=== PATIENT | female | born 1950 | race Caucasian/White ===

== ENCOUNTER 2017-04-17 19:07 | Emergency (ER) | payer MEDICARE ==
[2017-04-17 20:35] VITALS: BP 94/50; TEMP 98.6; O2SAT 94
--- NOTE | 2017-04-17 22:02 | ED.PDOC ---
History of Present Illness - General Chief Complaint: General Stated Complaint: finger pain after cat bite Time Seen by Provider: 04/17/17 21:22 Source: patient Exam Limitations: no limitations - History of Present Illness Initial Comments: Patient presents after being bitten by a kitten. The kitten lives in her barn and is the offspring of a wild mother. The patient is concerned about rabies and tetanus. No pain complaints. Bite is on the left distal anterior index finger. Timing/Duration: 1-3 hours Severity: mild Improving Factors: nothing Worsening Factors: nothing Associated Symptoms: denies symptoms Allergies/Adverse Reactions: Allergies NO KNOWN ALLERGY Allergy (Verified 06/27/16 07:21) Home Medications: Ambulatory Orders ALPRAZolam [Xanax] 0.25 mg PO PRN PRN 08/20/14 Atenolol [Tenormin] 100 mg PO DAILY 08/20/14 Meloxicam 7.5 mg PO DAILY 08/20/14 Miglitol [Glyset] 50 mg PO TID 08/20/14 Omeprazole 20 mg PO DAILY 08/20/14 Potassium Chloride [K-Tab] 10 meq PO DAILY 08/20/14 Triamterene & Hydrochlorothiaz [Triamterene/Hydrochloroth 37.5-25 mg] 1 tab PO DAILY 08/20/14 Metformin HCl 500 mg PO BID 04/29/15 Oxybutynin Chloride [Ditropan] 5 mg PO DAILY 04/29/15 HYDROcodone 5MG/APAP 325MG [[place] 5/325] 1 ea PO Q4H #90 tab 06/17/16 Rivaroxaban [Xarelto] 10 mg PO DAILY #9 tab 06/17/16 Review of Systems - Review of Systems Constitutional: States: no symptoms reported EENTM: States: no symptoms reported Respiratory: States: no symptoms reported Cardiology: States: no symptoms reported Gastrointestinal/Abdominal: States: no symptoms reported Genitourinary: States: no symptoms reported Musculoskeletal: States: no symptoms reported Skin: States: see HPI Neurological: States: no symptoms reported Endocrine: States: no symptoms reported Hematologic/Lymphatic: States: no symptoms reported Past Medical History (General) - Patient Medical History Hx Stroke: No Hx of COPD: No - use to be heavy smoker, quit few months ago Hx Congestive Heart Failure: No Hx Hypertension: Yes Hx Diabetes: Yes Hx MRSA: No - Vaccination History Hx Tetanus, Diphtheria Vaccination: No Hx Influenza Vaccination: No Hx Pneumococcal Vaccination: No Immunizations Up to Date: No - Social History Hx Tobacco Use: Yes - 30 yrs - Female History Patient : No Family Medical History - Family History Mother Living Status: Hx Family Hypertension: Yes Physical Exam - Physical Exam Respiratory: lungs clear Cardiovascular/Chest: regular rate, rhythm Skin Exam: other - punctate superficial lesion on left anterior distal 2nd phalange. Hemostatic. Progress - Progress Progress: 04/17/17 22:02 [facility] department notified and the process was started with them to contact animal control personprosper to quarantine the kittens. Patient was given a tetanus booster. Patient ordered to follow up with Dr. Barnes tomorrow to follow the events and determine if there is a need for rabies immunoglobulin. Patient voiced understanding and agreement with this plan. Departure - Departure Clinical Impression: Animal bite Disposition: Discharge to Home or Self Care Condition: Good Departure Forms: ED Discharge - Pt. Copy, Patient Portal Self Enrollment Diet: resume usual diet Activity: increase activity as tolerated Referrals: Ortiz Begum MD [Primary Care Provider] - 1-2 Weeks Home Medications: Ambulatory Orders ALPRAZolam [Xanax] 0.25 mg PO PRN PRN 08/20/14 Atenolol [Tenormin] 100 mg PO DAILY 08/20/14 Meloxicam 7.5 mg PO DAILY 08/20/14 Miglitol [Glyset] 50 mg PO TID 08/20/14 Omeprazole 20 mg PO DAILY 08/20/14 Potassium Chloride [K-Tab] 10 meq PO DAILY 08/20/14 Triamterene & Hydrochlorothiaz [Triamterene/Hydrochloroth 37.5-25 mg] 1 tab PO DAILY 08/20/14 Metformin HCl 500 mg PO BID 04/29/15 Oxybutynin Chloride [Ditropan] 5 mg PO DAILY 04/29/15 HYDROcodone 5MG/APAP 325MG [[place] 5/325] 1 ea PO Q4H #90 tab 06/17/16 Rivaroxaban [Xarelto] 10 mg PO DAILY #9 tab 06/17/16 Additional Instructions: Call Dr. Barnes in the morning and get an appointment with him this week so that you can establish a plan to determine if you need rabies prophylaxis measures.
[2017-04-17] MEDS ORDERED: TETANUS,DIPHTHERIA,PERTUSSIS 1 EA SYG IM ONE (22:05)
== END 2017-04-17 22:19 | disposition home or self-care (01) ==
LOC: ER 19:07
DX: S60.471A Other superficial bite of left index finger, initial encounter (principal); I10 Essential (primary) hypertension; E11.9 Type 2 diabetes mellitus without complications; Z23 Encounter for immunization; Z79.899 Other long term (current) drug therapy; Z87.891 Personal history of nicotine dependence; Y92.9 Unspecified place or not applicable; W55.01XA Bitten by cat, initial encounter

== ENCOUNTER 2017-06-03 20:43 | Inpatient (IN) | payer MEDICARE ==
--- NOTE | 2017-06-03 21:22 | RAD ---
EXAM DESCRIPTION: Chest,2 Views CLINICAL HISTORY: chest discomfort COMPARISON: June 06, 2016 FINDINGS: Cardiac silhouette is within normal limits. Aorta is tortuous. There is no focal parenchymal or pleural disease. There is no acute osseous process visualized. IMPRESSION: No evidence of acute cardiopulmonary disease. Electronically signed by: Omari Bentley MD 06/03/2017 9:21 PM CDT
[2017-06-03] MEDS ORDERED: METOPROLOL TARTRATE 25 MG TAB PO ONE (21:26)
[2017-06-03] MEDS ORDERED: PANTOPRAZOLE SODIUM TAB 40 MG PO ONE (21:26)
[2017-06-03] MEDS ORDERED: ENOXAPARIN SODIUM 100 MG/ML SYG SUBCU ONE (21:36)
[2017-06-03] MEDS ORDERED: DIGOXIN INJ 0.5 MG/2 ML AMP IV ONE (23:17)
[2017-06-03] MEDS ORDERED: ALPRAZolam 0.25 MG TAB PO ONE (23:47)
--- NOTE | 2017-06-03 23:47 | ED.PDOC ---
History of Present Illness - General Chief Complaint: Cardiovascular Problem Stated Complaint: "feeling weird, like heart racing" Time Seen by Provider: 06/03/17 20:44 Source: patient, family Exam Limitations: no limitations - History of Present Illness Initial Comments: he patient is a 67-year-old female presenting to the emergency room secondary to a feeling of discomfort in her chest that is not pain. It started up on her again about 4-6 hours ago. She is not feeling shortness of breath. She is not having chest pain. She is feeling a few palpitations. No syncope or near syncope. The patient has apparently had these episodes before. She believes the first was 3 or 4 months ago. No headache. No change in medications recently. Timing/Duration: unsure Severity: mild Improving Factors: nothing Worsening Factors: nothing Associated Symptoms: denies symptoms Allergies/Adverse Reactions: Allergies NO KNOWN ALLERGY Allergy (Verified 06/03/17 22:43) Home Medications: Ambulatory Orders ALPRAZolam [Xanax] 0.25 mg PO PRN PRN 08/20/14 Atenolol [Tenormin] 100 mg PO DAILY 08/20/14 Meloxicam 7.5 mg PO DAILY 08/20/14 Miglitol [Glyset] 50 mg PO TID 08/20/14 Omeprazole 20 mg PO DAILY 08/20/14 Potassium Chloride [K-Tab] 10 meq PO DAILY 08/20/14 Triamterene & Hydrochlorothiaz [Triamterene/Hydrochloroth 37.5-25 mg] 1 tab PO DAILY 08/20/14 Metformin HCl 500 mg PO BID 04/29/15 Oxybutynin Chloride [Ditropan] 5 mg PO DAILY 04/29/15 HYDROcodone 5MG/APAP 325MG [[place] 5/325] 1 ea PO Q4H #90 tab 06/17/16 Rivaroxaban [Xarelto] 10 mg PO DAILY #9 tab 06/17/16 Review of Systems - Review of Systems Constitutional: States: no symptoms reported EENTM: States: no symptoms reported Respiratory: States: no symptoms reported Cardiology: States: palpitations Gastrointestinal/Abdominal: States: no symptoms reported Genitourinary: States: no symptoms reported Musculoskeletal: States: no symptoms reported Skin: States: no symptoms reported Neurological: States: no symptoms reported Endocrine: States: no symptoms reported All other Systems: No Change from Baseline Past Medical History (General) - Patient Medical History Hx Stroke: No Hx of COPD: No - use to be heavy smoker, quit few months ago Hx Congestive Heart Failure: No Hx Hypertension: Yes Hx Diabetes: Yes Hx Cancer: No Hx Hepatitis C: No Hx MRSA: No Surgical History: appendectomy, Hysterectomy, other - Vaccination History Hx Tetanus, Diphtheria Vaccination: No Hx Influenza Vaccination: Yes Hx Pneumococcal Vaccination: No - Social History Hx Tobacco Use: Yes Hx Alcohol Use: No - Female History Patient : No Family Medical History - Family History Mother Living Status: Hx Family Hypertension: Yes Physical Exam - Physical Exam General Appearance: Alert, Comfortable, No apparent distress Eye Exam: bilateral normal Ears, Nose, Throat: hearing grossly normal, normal ENT inspection, normal pharynx Neck: full range of motion, supple Respiratory: lungs clear, normal breath sounds, no respiratory distress, no accessory muscle use Cardiovascular/Chest: normal peripheral pulses, no edema, tachycardia, irregularly irregular Peripheral Pulses: radial,right: 2+, radial,left: 2+, dorsalis pedis,right: 2+, dorsalis pedis,left: 2+ Gastrointestinal/Abdominal: non tender, soft Rectal Exam: deferred Back Exam: normal inspection, no CVA tenderness Extremity: normal range of motion, non-tender, normal inspection, no pedal edema , normal capillary refill Neurologic: crime victim specialist II-XII nml as tested, alert, normal mood/affect, oriented x 3 Skin Exam: normal color Comments: Vital Signs - 24 hr 06/03/17 06/03/17 21:10 23:42 Temperature 98.1 F Pulse Rate 144 H Pulse Rate [ 128 H left] Respiratory 22 Rate Blood Pressure 133/78 [left] O2 Sat by Pulse 96 Oximetry Progress - Progress Progress: 06/03/17 23:48 the patient is a 67-year-old female presenting to the emergency room secondary to a funny feeling in her chest. Given her history it appears that she is likely had paroxysmal atrial fibrillation for the last 3 or 4 months. The patient is certainly not rate controlled. at this time She is not exhibiting any evidence of any strokes. The patient was given a dose of Lovenox here. The plan initially was to give the patient a dose of oral metoprolol to get her slowed down adequately and then let her go home with a blood thinner to follow up with her primary care doctor and cardiology. Unfortunately the metoprolol has not slown her down adequately and her blood pressure has dropped too much to use additional oral diltiazem. The patient is being loaded with IV digoxin for now. Clinically the patient is in no distress however a heart rate in the 130s to 150s is something that needs to be controlled. The patient will be admitted for further medication adjustments to obtain adequate rate control. Continue anticoagulation. Electrolytes are being corrected. - Results/Orders Results/Orders: Laboratory Tests 06/03/17 06/03/17 06/03/17 21:00 21:00 21:00 WBC 8.3 RBC 4.64 Hgb 12.5 Hct 37.6 MCV 81.1 MCH 26.9 L MCHC 33.3 RDW 16.1 H Plt Count 269 MPV 8.3 Absolute Neuts (auto) 5.20 Absolute Lymphs (auto) 2.00 Absolute Monos (auto) 0.70 Absolute Eos (auto) 0.30 Absolute Basos (auto) 0.10 Neutrophils % 62.5 Lymphocytes % 23.9 Monocytes % 8.9 Eosinophils % 3.9 Basophils % 0.8 PT 10.8 INR 0.960 PTT (SP) 30.6 D-Dimer, Quantitative < 230 Sodium 140 Potassium 3.7 Chloride 100 L Carbon Dioxide 28 Anion Gap 15.7 BUN 27 H Creatinine 1.05 BUN/Creatinine Ratio 25.7 H Random Glucose 138 H Serum Osmolality 286.7 Calcium 9.7 Magnesium 1.7 L Total Bilirubin 0.5 AST 25 ALT 18 Alkaline Phosphatase 74 Creatine Kinase 118 CK-MB (CK-2) 4.1 CK-MB (CK-2) % Not Reportable Troponin I < 0.02 B-Natriuretic Peptide 125.0 H Serum Total Protein 8.3 H Albumin 4.4 Globulin 3.9 H Albumin/Globulin Ratio 1.1 Lipase 43 TSH 1.65 Urine Color Urine Appearance Urine pH Ur Specific [place] Urine Protein Urine Glucose (UA) Urine Ketones Urine Blood Urine Nitrite Urine Bilirubin Urine Urobilinogen Ur Leukocyte Esterase Urine RBC Urine WBC Ur Epithelial Cells Urine Bacteria 06/03/17 22:10 WBC RBC Hgb Hct MCV MCH MCHC RDW Plt Count MPV Absolute Neuts (auto) Absolute Lymphs (auto) Absolute Monos (auto) Absolute Eos (auto) Absolute Basos (auto) Neutrophils % Lymphocytes % Monocytes % Eosinophils % Basophils % PT INR PTT (SP) D-Dimer, Quantitative Sodium Potassium Chloride Carbon Dioxide Anion Gap BUN Creatinine BUN/Creatinine Ratio Random Glucose Serum Osmolality Calcium Magnesium Total Bilirubin AST ALT Alkaline Phosphatase Creatine Kinase CK-MB (CK-2) CK-MB (CK-2) % Troponin I B-Natriuretic Peptide Serum Total Protein Albumin Globulin Albumin/Globulin Ratio Lipase TSH Urine Color Yellow Urine Appearance Clear Urine pH 6.5 Ur Specific [place] 1.015 Urine Protein 30 Urine Glucose (UA) Negative Urine Ketones Negative Urine Blood Trace-intact H Urine Nitrite Negative Urine Bilirubin Negative Urine Urobilinogen 0.2 Ur Leukocyte Esterase Negative Urine RBC 0-1 Urine WBC 0-1 Ur Epithelial Cells 0-1 Urine Bacteria 0 chest x-ray appears largely benign. EKG shows atrial fibrillation with rapid ventricular rate at a rate of [address] bpm. No definitive acute ST segment changes concerning for ischemia. Departure - Departure Clinical Impression: Atrial fibrillation with rapid ventricular response Disposition: Admit Patient Referrals: Ortiz Begum MD [Primary Care Provider] - 1-2 Weeks Home Medications: Ambulatory Orders ALPRAZolam [Xanax] 0.25 mg PO PRN PRN 08/20/14 Atenolol [Tenormin] 100 mg PO DAILY 08/20/14 Meloxicam 7.5 mg PO DAILY 08/20/14 Miglitol [Glyset] 50 mg PO TID 08/20/14 Omeprazole 20 mg PO DAILY 08/20/14 Potassium Chloride [K-Tab] 10 meq PO DAILY 08/20/14 Triamterene & Hydrochlorothiaz [Triamterene/Hydrochloroth 37.5-25 mg] 1 tab PO DAILY 08/20/14 Metformin HCl 500 mg PO BID 04/29/15 Oxybutynin Chloride [Ditropan] 5 mg PO DAILY 04/29/15 HYDROcodone 5MG/APAP 325MG [[place] 5/325] 1 ea PO Q4H #90 tab 06/17/16 Rivaroxaban [Xarelto] 10 mg PO DAILY #9 tab 06/17/16 Decision To Admit - Decistion To Admit Decision to Admit Reason: Medical Nature Decision to Admit Date: 06/03/17 Decision to Admit Time: 23:52
--- NOTE | 2017-06-04 00:01 | HP ---
SUPERVISING PHYSICIAN: Xu Corey MD CHIEF COMPLAINT: Heart palpitations. HISTORY OF PRESENT ILLNESS: Ms. Burnett is a 67 year-old patient who presented to the Emergency Department due to the feeling of a discomfort in her chest. She denies that the discomfort she was feeling was not pain and was more of a pressure and palpitations. This had been going on for about 4 to 6 hours. She denied any shortness of breath or syncopal episodes. She notes she has been having this type of symptoms for well over 4 to 5 months. Tonight she took an antacid and this resulted in no change in her symptoms after which point she presented to the Emergency Department. On initial presentation to the Emergency Department, her vital signs showed she had a heart rate of 148, blood pressure 120/63. Saturation 96% on room air and she was afebrile. EKG completed showed that she was in atrial fibrillation with rapid ventricular response. Laboratory was completed at that point and showed that her CBC was within normal limits as well as coagulation studies. Chemistries showed a troponin of less than 0.02. Electrolytes were within normal limits with normal potassium of 3.7. Magnesium was noted to be a little bit low at 1.7. BNP was 125. She was then given a dose of metoprolol tartrate 25 mg which resulted in a drop in her blood pressure with her blood pressure showing to be 97/42. With her blood pressure being low, Dr. Corey started her on digoxin for rate control with an initial dose of 0.25 mg. Shortly after that, she did show conversion back to normal sinus rhythm into the 80s. Given that she did convert with a digoxin, Dr. Corey requested the patient be admitted now for continued loading of the digoxin to obtain a therapeutic level, to continue with telemetry and further assist in maintaining rate control. The patient was admitted to the medical/ surgical floor in stable condition. PAST MEDICAL HISTORY: 1. Type 2 diabetes mellitus. 2. Hypertension. 3. Stress incontinence. 4. Arthritis. PAST SURGICAL HISTORY: 1. Tonsillectomy and adenoidectomy. 2. Hysterectomy. 3. Appendectomy. 4. x2. 5. Left foot surgery. 6. Left hand surgery. 7. Right total knee replacement in 2016. CURRENT MEDICATIONS: Please refer to updated list of home medications after they have been verified and placed in the electric medical records. ALLERGIES: NO KNOWN DRUG ALLERGIES. FAMILY HISTORY: Significant for cardiovascular disease, cancer and diabetes. SOCIAL HISTORY: The patient is disabled, . She does live in [place]. She has a history of smoking 1 to 1-1/2 pack of cigarettes for well over 30 years but stopped in 2016. She has never used alcohol and she denies any illicit drug use. REVIEW OF SYSTEMS: CONSTITUTIONAL: Denies any fever, malaise or body aches. HEENT: Denies headaches, vision changes, sinus congestion. RESPIRATORY: Denies shortness of breath. CARDIOVASCULAR: As noted in the history of present illness, palpitations noted , no reported chest pains, syncopal or near syncopal episodes. GASTROINTESTINAL: Denies nausea, vomiting, diarrhea. GENITOURINARY: Denies dysuria, hematuria or other urinary symptoms. NEUROLOGICAL: She denies any syncopal episodes,near syncopal episodes, vision changes, headaches, migraines or other neurological symptoms. PHYSICAL EXAMINATION: VITAL SIGNS: Heart rate initially on admission to the Emergency Room showed a rate between 120 and 148 on bedside telemetry with initial blood pressure being 120/63. Temperature 98.1. On admission to the medical/surgical floor she was in normal sinus rhythm with a heart rate of 78. Blood pressure was 92/67, respirations 18. Saturation 95% on room air. Admission weight 95.7 kg. GENERAL: On examination in the Emergency Room, the patient was in no acute distress. She was comfortable and alert and appears to be well-nourished and well-hydrated. HEENT: Tympanic membranes are clear bilaterally. Pharynx is pink and moist without any lesions. NECK: Supple, non-tender with full range of motion. No jugular venous distention noted. CHEST: Lungs clear to auscultation bilaterally without any rhonchi, rales, or wheezes. CARDIOVASCULAR: Regular rate and rhythm showing normal sinus rhythm on bedside monitor without any appreciable murmurs, rubs, or gallops. ABDOMEN: Soft, non-tender, positive bowel sounds. EXTREMITIES: No cyanosis, clubbing, or edema. NEUROLOGIC: She was alert and oriented x 3. Cranial nerves II through XII are grossly intact. Facial features were symmetrical. Extraocular movements within normal limits. There was no noted nystagmus and no notable neurosensory deficits. LABORATORY: CBC showed a white count of 8.3, hemoglobin 12.5, hematocrit 37.6, platelet count 269,000, differential within normal limits. Coagulation studies, both PT/ PTT and D-dimer were all within normal limits. Chemistries: Electrolytes showed to be within normal limits with a potassium of 3.7, BUN 27, creatinine 1.05, glucose 138, calcium 9.7, magnesium low at 1.7. All liver functions showed to be within normal limits and troponin was less than 0.02. BNP was slightly elevated at 125. TSH was normal at 1.65 as well as amylase was 43. Urinalysis showed a trace of intact blood on dipstick, otherwise was within normal limits. RADIOLOGY: Chest x-ray single view in the Emergency Department per radiology interpretation showed no evidence of acute cardiopulmonary disease. ASSESSMENT: 1. Paroxysmal atrial fibrillation with a rapid ventricular response on admission, responding to digoxin showing to be in normal sinus rhythm after initial dose of digoxin. 2. Type 2 diabetes mellitus. 3. Hypertension. 4. Stress incontinence. 5. Arthritis. PLAN: The patient is to be admitted to the medical/surgical floor for continued telemetry. We will continue with close monitoring and continue with loading dose of digoxin. She did get 0.25 mg initially, will follow this up with 0.25 mg x2 dose for a total of 1 mg loading dose to be continued with daily dose based off digoxin level to be collected after third dose of digoxin. Will plan to repeat laboratory studies in the morning. Will anticipate length of stay to be 2 to 3 days. Until discharge, we will continue to monitor the patient closely and treat appropriately. Once clinically stable enough to be discharged, she will need close clinical followup with her primary care physician, Dr. Begum. #[id number] [facility]
[2017-06-04] MEDS ORDERED: SODIUM CHLORIDE 0.9% (FLUSH) 10 ML SYG IV PRN (01:33)
[2017-06-04] MEDS ORDERED: ACETAMINOPHEN 325 MG TAB PO PRN (01:33)
[2017-06-04] MEDS ORDERED: GLUCAGON INJ 1 MG VIAL SUBCU PRN (01:33)
[2017-06-04] MEDS ORDERED: DEXTROSE 50% 25 GM/50 ML SYG IV PRN (01:33)
[2017-06-04] MEDS ORDERED: KCL 20MEQ/0.45% NS 1,000 ML IVS PRN (01:38)
[2017-06-04] MEDS ORDERED: IV SET AND CAP CHANGE INJ INJ SCH (02:00)
[2017-06-04] MEDS: DIGOXIN INJ 0.5 MG/2 ML AMP IV SCH ×2 (06:13→18:37)
[2017-06-04] MEDS: INSULIN LISPRO 100 UNITS/ML PEN SUBCU SCH ×4 (07:18→21:00)
[2017-06-04] MEDS ORDERED: SODIUM CHLORIDE 0.9% 500ML 500 ML IVS ONE (08:26)
[2017-06-04] MEDS ORDERED: SODIUM CHLORIDE 0.9% 500ML 500 ML ONE (10:56)
[2017-06-04] MEDS ORDERED: ALPRAZolam 0.25 MG TAB PO PRN (17:57)
[2017-06-04] MEDS ORDERED: METOPROLOL TARTRATE 25 MG TAB PO ONE (18:03)
[2017-06-04] MEDS ORDERED: OMEPRAZOLE CAP 20 MG CAP PO SCH (18:30)
[2017-06-04] MEDS ORDERED: METOPROLOL SUCCINATE XL 25 MG TAB PO ONE (18:37)
[2017-06-04] MEDS ORDERED: DIGOXIN 0.125 MG TAB PO ONE (19:00)
[2017-06-04] MEDS ORDERED: ENOXAPARIN SODIUM 40 MG/0.4 ML SYG SUBCU SCH (19:00)
[2017-06-04] MEDS ORDERED: POTASSIUM CHLORIDE 20 MEQ TAB ONE (19:42)
--- NOTE | 2017-06-04 19:49 | PN ---
DATE: 06/04/17 SUBJECTIVE: The patient is feeling much improved with pulse in the 40s, 50s and now 60s per minute. Her final dose for digitalization had to be held at noon today because pulse in the 40s and 50s. Blood pressure has stabilized. She is able to ambulate and feeling quite well. No significant shortness of breath or chest discomfort noted. Of note is the recurring nature of these symptoms of what appear to be paroxysmal atrial fibrillation even though she has been on Lopressor 100 mg a day. She is a diabetic on oral hypoglycemic medications. Her blood pressure was so low in the Emergency Room that they opted to digitalize her and then reintroduce to the beta blockade at a lower dose to see if it will result in rate control. Subsequent conversion to normal sinus rhythm was noted close to the time of her admission to the hospital. She is not on any significant anticoagulant therapy. OBJECTIVE: Blood pressure was only 84/54 until approximately 10:00 this morning when it was 135/84. Afebrile. Intake and output fairly good. LUNGS: Clear. HEART: Tones regular. Pulse rate was down to 44 at 6:00 this morning and was 60 at 6:23 this evening. LABORATORY: White count of 9,300, hemoglobin 12 and stable. Chemistry showed potassium 3.6 with supplementation to continue. CO2 of 28, BUN 27, creatinine 1.13, glucose 97 fasting, calcium 9.2, magnesium 1.8. Urinalysis showed a trace of hematuria. No cultures obtained. Chest x-ray at the time of admission showed no acute findings. ASSESSMENT: 1. Acute atrial fibrillation with rapid ventricular response with paroxysmal episodes noted at home before admission. Rate control as well as conversion to normal sinus rhythm was noted after initiation of Digoxin with further rate control to be adjusted with modified beta blockade which she has been on chronically. 2. Diabetes mellitus type 2. 3. Hypertension currently with hypotension. 4. Stress incontinence. 5. Arthritis. PLAN: The patient is doing better but will need to have close followup and management, and adjustment for her home medication treatment program. We will attempt to find an opening so that she will be able to be seen by Dr. Mayen in cardiology clinic tomorrow during the day so that she would be able to get his advice and to assist Dr. Begum with ongoing management of the atrial fibrillation. Whether an Atenolol of 50 mg twice a day is sufficient along with a low dose Lanoxin. Whether to utilize anticoagulation also to be addressed by cardiology clinic tomorrow. Close management of the diabetes to continue. Thyroid function is within normal limits. #[id number] [facility]
[2017-06-04] MEDS ORDERED: POTASSIUM CHLORIDE 10 MEQ TAB PO SCH (21:00)
[2017-06-04] MEDS ORDERED: metFORMIN HCL 500 MG TAB PO SCH ×2 (21:00)
[2017-06-04] MEDS ORDERED: KCL 20MEQ/0.45% NS 0 ML IVS ONE (21:55)
[2017-06-05] MEDS ORDERED: METOPROLOL TARTRATE 50 MG TAB PO SCH (07:30)
[2017-06-05] MEDS: INSULIN LISPRO 100 UNITS/ML PEN SUBCU SCH ×2 (07:58→11:44)
[2017-06-05] MEDS ORDERED: POTASSIUM CHLORIDE 20 MEQ TAB ONE (08:55)
[2017-06-05] MEDS ORDERED: POTASSIUM CHLORIDE 10 MEQ TAB PO SCH (09:00)
[2017-06-05] MEDS ORDERED: metFORMIN HCL 500 MG TAB PO SCH (09:00)
[2017-06-05] MEDS ORDERED: OXYBUTYNIN CL 5 MG TAB PO SCH (09:00)
[2017-06-05] MEDS: DIGOXIN 0.125 MG TAB PO SCH ×2 (10:04→12:29)
[2017-06-05] MEDS ORDERED: DIGOXIN 0.125 MG TAB PO SCH (12:00)
[2017-06-05 12:04] VITALS: BP 131/81; TEMP 97.5; O2SAT 97
--- NOTE | 2017-06-05 14:23 | DS ---
DISCHARGE DIAGNOSIS: 1. Acute atrial fibrillation with rapid ventricular response with clinical evidence of paroxysmal episodes noted at home before her current admission. Rate control was obtained with digoxin parenterally with conversion to normal sinus rhythm and beta blockade was also continued with an adjusted dose. 2. Diabetes mellitus type 2. 3. Hypertension, currently with hypotension with adjustments of medications being made. 4. Chronic stress incontinence. 5. History of arthritis. HISTORY OF PRESENT ILLNESS: This 67-year-old, white female is admitted to the hospital from the Emergency Room because of significant discomfort in her chest and a rapid pulse with irregularities and palpitations. She has been noticing these symptoms for at least 4 to 6 hours before admission and has had several episodes of these symptoms in the recent few weeks. She has been on Lopressor 100 mg once a day, but still having these paroxysmal palpitations. She has been having them repeatedly for the last 4 or 5 months. She is seen in the clinic by Dr. Begum who assists with her ongoing medical care. In the Emergency Room, she received the initial digitalization dose of Lanoxin parenterally which showed good response with conversion back to normal sinus rhythm from a pulse of over 150. She was admitted to the hospital because of the significance of the recurring rhythm to continue with DVT prophylaxis as well as digitalization loading. Special attention to her blood pressure management as well to prevent hypotension. LABORATORY: White count 8,300, hemoglobin 12.5. INR 0.96, D-dimer 0. Chemistries showed potassium 3.9 after supplementation, BUN 23, creatinine 1.03 , fasting glucose 135. Cholesterol 170, magnesium 1.7 up to 1.8 with supplementation. Beta natriuretic peptide 125. Troponin 0. Now albumin is 4.4 , TSH 1.65. No cultures obtained. Chest x-ray on admission showed no acute cardiopulmonary process HOSPITAL COURSE: The patient was feeling much improved on the morning of discharge and was seen in cardiology clinic before discharge to assist with initiating an outpatient followup and management program. PLAN: The patient was ready to have continued outpatient therapy at the time fo her discharge. She will have followup with Dr. Begum, her primary care physician, within the next 2 weeks, to see Dr. Clifford Mayen, furnace feeder, next 06/12/17, at 2 PM for repeat followup. #[id number] [facility]
[2017-06-05] MEDS ORDERED: ENOXAPARIN SODIUM 40 MG/0.4 ML SYG SUBCU SCH (21:00)
[2017-06-06] MEDS ORDERED: OMEPRAZOLE CAP 20 MG CAP PO SCH (06:30)
== END 2017-06-05 16:10 | disposition home or self-care (01) | DRG 310 ==
LOC: ER 20:43 → OBSVTOIN 06-04 → MS 06-04
PROVIDERS: ADMIT Nurse Practitioner Family; ATTEND Emergency Medicine
DX: I48.0 Paroxysmal atrial fibrillation (principal); E11.9 Type 2 diabetes mellitus without complications; I10 Essential (primary) hypertension; M19.90 Unspecified osteoarthritis, unspecified site; N39.3 Stress incontinence (female) (male); Z79.84 Long term (current) use of oral hypoglycemic drugs; Z79.4 Long term (current) use of insulin; Z79.899 Other long term (current) drug therapy; Z96.651 Presence of right artificial knee joint; Z87.891 Personal history of nicotine dependence; Z79.891 Long term (current) use of opiate analgesic

== ENCOUNTER 2017-06-06 22:11 | Emergency (ER) | payer MEDICARE ==
--- NOTE | 2017-06-06 22:31 | ED.PDOC ---
History of Present Illness - General Chief Complaint: Headache Stated Complaint: Headache Time Seen by Provider: 06/06/17 22:30 Source: patient Exam Limitations: no limitations - History of Present Illness Initial Comments: Bri Burnett 67 y/o female stated that she was recently discharge from hospital yesterday afternoon for a fib w/rvr was placed on digoxin and started on pradaxa 10mg.po Timing/Duration: 4-6 hours Quality: constant, throbbing Head Injury Location: frontal Recent Head Trauma: no recent headache/trauma Improving Factors: nothing Worsening Factors: nothing Associated Symptoms: other - photophobia Allergies/Adverse Reactions: Allergies NO KNOWN ALLERGY Allergy (Verified 06/03/17 22:43) Home Medications: Ambulatory Orders ALPRAZolam [Xanax] 0.25 mg PO PRN PRN 08/20/14 Omeprazole 20 mg PO DAILY 08/20/14 Potassium Chloride [K-Tab] 10 meq PO DAILY 08/20/14 Metformin HCl 500 mg PO BID 04/29/15 Oxybutynin Chloride [Ditropan] 5 mg PO DAILY 04/29/15 Apixaban [Eliquis] 5 mg PO BID #60 tab 06/05/17 Atenolol [Tenormin] 50 mg PO BID #0 06/05/17 Digoxin [Lanoxin] 0.25 mg PO Q12N #30 tab 06/05/17 Review of Systems - Review of Systems Constitutional: States: no symptoms reported EENTM: States: no symptoms reported Respiratory: States: no symptoms reported Cardiology: States: no symptoms reported Gastrointestinal/Abdominal: States: no symptoms reported Genitourinary: States: no symptoms reported Musculoskeletal: States: no symptoms reported Neurological: States: see HPI, headache Endocrine: States: no symptoms reported Past Medical History (General) - Patient Medical History Hx Seizures: No Hx Stroke: No Hx Asthma: No Hx of COPD: Yes Hx Cardiac Disorders: Yes - a.fib recent diagnosis Hx Congestive Heart Failure: No Hx Pacemaker: No Hx Hypertension: Yes Hx Diabetes: Yes Hx Cancer: No Hx Hepatitis C: No Hx MRSA: No - Vaccination History Hx Tetanus, Diphtheria Vaccination: No Hx Influenza Vaccination: Yes Hx Pneumococcal Vaccination: No - Social History Hx Tobacco Use: Yes Hx Alcohol Use: No Hx Substance Use: No Hx Physical Abuse: No Hx Emotional Abuse: No - Female History Patient : No Family Medical History - Family History Mother Living Status: Hx Family Hypertension: Yes Physical Exam - Physical Exam General Appearance: Alert, Anxious, No apparent distress Eyes, Ears, Nose, Throat Exam: PERRL/EOMI, normal ENT inspection Neck: non-tender, full range of motion, supple Cardiovascular/Chest: normal peripheral pulses, regular rate, rhythm, no murmur Respiratory: chest non-tender, lungs clear Gastrointestinal/Abdominal: normal bowel sounds, non tender, soft Back Exam: normal inspection, no CVA tenderness Extremity: non-tender, no pedal edema, no calf tenderness Mental Status: alert, 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 Exam: normal hearing, normal speech, PERRL Motor/Sensory: no motor deficit, no sensory deficit, no pronator drift Skin Exam: warm/dry Lymphatic: no adenopathy Progress - Progress Progress: 06/07/17 00:03 Vital Signs - 8 hr 06/06/17 22:29 Temperature 98.2 F Pulse Rate [ 58 L Left Radial] Respiratory 20 Rate Blood Pressure 160/93 [Right Arm] O2 Sat by Pulse 96 Oximetry - Results/Orders Results/Orders: Laboratory Tests 06/06/17 06/06/17 06/07/17 00:20 00:20 00:20 WBC 8.6 RBC 4.01 L Hgb 10.9 L Hct 33.6 L MCV 83.6 MCH 27.1 MCHC 32.4 L RDW 16.1 H Plt Count 212 MPV 8.7 Absolute Neuts (auto) 6.40 Absolute Lymphs (auto) 1.30 Absolute Monos (auto) 0.50 Absolute Eos (auto) 0.30 Absolute Basos (auto) 0.00 Neutrophils % 74.7 Lymphocytes % 15.2 L Monocytes % 6.3 Eosinophils % 3.3 Basophils % 0.5 Sodium 143 Potassium 3.9 Chloride 108 Carbon Dioxide 24 Anion Gap 14.9 BUN 24 H Creatinine 0.90 BUN/Creatinine Ratio 26.7 H Random Glucose 137 H Serum Osmolality 291.2 Calcium 9.0 Digoxin 1.0 - EKG/XRAY/CT EKG: Tommy, Sinus, no ST T wave changes Comments: Heart rate-53 Departure - Departure Clinical Impression: Hypertension, uncontrolled Headache Qualifiers: Headache type: unspecified Headache chronicity pattern: unspecified pattern Intractability: intractable Qualified Code(s): R51 - Headache Time of Disposition: 06:53 Disposition: Admit Patient Condition: Fair Departure Forms: Patient Portal Self Enrollment Referrals: Ortiz Begum MD [Primary Care Provider] - 1-2 Weeks Home Medications: Ambulatory Orders ALPRAZolam [Xanax] 0.25 mg PO PRN PRN 08/20/14 Omeprazole 20 mg PO DAILY 08/20/14 Potassium Chloride [K-Tab] 10 meq PO DAILY 08/20/14 Metformin HCl 500 mg PO BID 04/29/15 Oxybutynin Chloride [Ditropan] 5 mg PO DAILY 04/29/15 Apixaban [Eliquis] 5 mg PO BID #60 tab 06/05/17 Atenolol [Tenormin] 50 mg PO BID #0 06/05/17 Digoxin [Lanoxin] 0.25 mg PO Q12N #30 tab 06/05/17 Decision To Admit - Decistion To Admit Decision to Admit Reason: Admit from ER Decision to Admit Date: 06/07/17 - D/W Rocky Weiss/Joshua Decision to Admit Time: 06:54 Transfer to Outside Facility - Transfer Information Accepting Provider:: Rocky Weiss/Joshua
--- NOTE | 2017-06-06 22:52 | CT ---
PROCEDURE: Head CLINICAL HISTORY: 67 years Female headache on Pradaxa COMPARISON: None. TECHNIQUE: Contiguous axial images obtained through the brain without IV contrast. This exam was performed according to our department optimization program which includes automated exposure control, adjustment of the mA and/or kv according to patient size and/or use of iterative reconstruction technique. FINDINGS: The ventricles and sulci are within normal limits for the patient's age. No midline shift or mass effect. No masses identified. No acute intracranial hemorrhage. Small amount of mucosal thickening in paranasal sinuses. No depressed calvarial fractures. IMPRESSION: No acute intracranial abnormality is identified. Small amount mucosal thickening in the paranasal sinuses Electronically signed by: Suzy Murcia 06/06/2017 10:51 PM CDT
[2017-06-06 22:57] VITALS: TEMP 98.2
[2017-06-06] MEDS ORDERED: fentaNYL CITRATE INJ 50 MCG/ML AMP IV ONE (23:24)
[2017-06-07] MEDS ORDERED: fentaNYL CITRATE INJ 50 MCG/ML AMP IV ONE (00:27)
[2017-06-07] MEDS ORDERED: ENALAPRILAT INJ 1.25 MG/ML VIAL IV ONE ×2 (01:41→06:49)
[2017-06-07] MEDS ORDERED: SODIUM CHLORIDE 0.9% 1000ML 1,000 ML IVS ONE (08:47)
[2017-06-07] MEDS ORDERED: predniSONE 20 MG TAB PO ONE (08:47)
[2017-06-07] MEDS ORDERED: KETOROLAC TROMETHAMINE INJ 30 MG/ML VIAL IV ONE (08:47)
[2017-06-07] MEDS ORDERED: PROMETHAZINE HCL INJ 25 MG in SODIUM CHLORIDE 0.9% 50ML 50 ML IVPB ONE (08:47)
[2017-06-07] MEDS ORDERED: HYDROcodone 7.5MG/APAP 325MG 1 EA TAB PO ONE (08:48)
[2017-06-07] MEDS ORDERED: ALPRAZolam 0.25 MG TAB PO ONE (08:50)
[2017-06-07] MEDS ORDERED: PROMETHAZINE HCL INJ 25 MG/ML VIAL ONE (08:54)
[2017-06-07] MEDS ORDERED: SODIUM CHLORIDE 0.9% 50ML 50 ML ONE (08:55)
[2017-06-07 12:11] VITALS: BP 138/56; O2SAT 96
== END 2017-06-07 12:10 | disposition home or self-care (01) ==
LOC: ER 22:11
DX: R51 Headache (principal); I10 Essential (primary) hypertension; I48.91 Unspecified atrial fibrillation; J44.9 Chronic obstructive pulmonary disease, unspecified; Z87.891 Personal history of nicotine dependence; Z79.899 Other long term (current) drug therapy
CPT/HCPCS: 36415; 70450; 80048; 80162; 85025; 93005; A4216; J1885; J2550; J3010; J7030; J7512

== ENCOUNTER 2017-06-09 03:13 | Emergency (ER) | payer MEDICARE ==
[2017-06-09] MEDS ORDERED: ASPIRIN TABLET 325 MG TAB PO ONE (03:28)
[2017-06-09] MEDS ORDERED: ENALAPRILAT INJ 1.25 MG/ML VIAL IV ONE (03:34)
--- NOTE | 2017-06-09 03:42 | ED.PDOC ---
History of Present Illness - General Chief Complaint: Chest Pain/MS Stated Complaint: CP, headache Time Seen by Provider: 06/09/17 03:22 Source: patient Exam Limitations: no limitations - History of Present Illness Initial Comments: Bri Burnett 67 y/o female stated that she went to get water tonight then went back to bed felt chest heaviness no chest pain followed by throbbing headache on top of her head which had been constant then decided to come here.Has a fib and was placed on xarelto and digoxin one week ago Timing/Duration: 1-3 hours Severity: moderate Improving Factors: rest Worsening Factors: movement Associated Symptoms: headaches Allergies/Adverse Reactions: Allergies NO KNOWN ALLERGY Allergy (Verified 06/09/17 03:33) Home Medications: Ambulatory Orders ALPRAZolam [Xanax] 0.25 mg PO PRN PRN 08/20/14 Omeprazole 20 mg PO DAILY 08/20/14 Metformin HCl 500 mg PO BID 04/29/15 Oxybutynin Chloride [Ditropan] 5 mg PO DAILY 04/29/15 Atenolol [Tenormin] 50 mg PO BID #0 06/05/17 Digoxin [Lanoxin] 0.25 mg PO Q12N #30 tab 06/05/17 Cyclobenzaprine HCl [Flexeril] 10 mg PO Q8H PRN #20 tab 06/07/17 Rivaroxaban [Xarelto] 20 mg PO DAILY 06/09/17 Review of Systems - Review of Systems Constitutional: States: no symptoms reported EENTM: States: no symptoms reported Respiratory: States: no symptoms reported Cardiology: States: see HPI Gastrointestinal/Abdominal: States: no symptoms reported Genitourinary: States: no symptoms reported Musculoskeletal: States: no symptoms reported Skin: States: no symptoms reported Neurological: States: see HPI, headache Endocrine: States: no symptoms reported Hematologic/Lymphatic: States: no symptoms reported Past Medical History (General) - Patient Medical History Hx Seizures: No Hx Stroke: No Hx Asthma: No Hx of COPD: Yes Hx Cardiac Disorders: Yes - a.fib recent diagnosis Hx Congestive Heart Failure: No Hx Pacemaker: No Hx Hypertension: Yes Hx Diabetes: Yes Hx Cancer: No Hx Hepatitis C: No Hx MRSA: No Surgical History: appendectomy, tonsillectomy, other - hysterectomy,knee,hand - Vaccination History Hx Tetanus, Diphtheria Vaccination: No Hx Influenza Vaccination: Yes Hx Pneumococcal Vaccination: No - Social History Hx Tobacco Use: Yes Hx Alcohol Use: No Hx Substance Use: No Hx Physical Abuse: No Hx Emotional Abuse: No - Activities of Daily Living Patient Lives Alone: No - family Grooming Ability: Independent Eating (Feeding) Ability: Independent Toileting Ability: Independent - Female History Patient : No Family Medical History - Family History Mother Living Status: Hx Family Hypertension: Yes Physical Exam - Physical Exam General Appearance: Alert, Anxious, No apparent distress Eye Exam: bilateral normal Ears, Nose, Throat: hearing grossly normal, normal ENT inspection Neck: non-tender, full range of motion, supple Respiratory: chest non-tender, lungs clear, normal breath sounds Cardiovascular/Chest: normal peripheral pulses, regular rate, rhythm, no murmur Peripheral Pulses: radial,right: 1+, radial,left: 1+ Gastrointestinal/Abdominal: normal bowel sounds, non tender, soft Back Exam: normal inspection, no CVA tenderness Extremity: normal range of motion, non-tender Neurologic: no motor/sensory deficits, alert, normal mood/affect, oriented x 3 Skin Exam: normal color, warm/dry Progress - Progress Progress: 06/09/17 03:59 Vital Signs - 8 hr 06/09/17 06/09/17 03:13 03:26 Temperature 98.8 F Pulse Rate 80 Pulse Rate [ 80 80 monitor] Respiratory 18 20 Rate Blood Pressure 180/96 [Left Arm] O2 Sat by Pulse 95 Oximetry - Results/Orders Results/Orders: Laboratory Tests 06/09/17 06/09/17 06/09/17 03:25 03:25 03:25 WBC 8.1 RBC 4.19 L Hgb 11.2 L Hct 34.1 L MCV 81.2 MCH 26.7 L MCHC 33.0 RDW 15.8 H Plt Count 206 MPV 8.6 Absolute Neuts (auto) 6.70 Absolute Lymphs (auto) 1.00 Absolute Monos (auto) 0.30 Absolute Eos (auto) 0.00 Absolute Basos (auto) 0.00 Neutrophils % 82.3 H Lymphocytes % 12.9 L Monocytes % 4.2 Eosinophils % 0.3 L Basophils % 0.3 PT 11.5 INR 1.020 PTT (SP) 31.9 D-Dimer, Quantitative < 230 Sodium 141 Potassium 3.8 Chloride 105 Carbon Dioxide 25 Anion Gap 14.8 BUN 30 H Creatinine 0.78 BUN/Creatinine Ratio 38.5 H Random Glucose 176 H Serum Osmolality 291.8 Calcium 9.2 Magnesium 1.7 L Creatine Kinase 84 CK-MB (CK-2) 3.4 CK-MB (CK-2) % Not Reportable Troponin I < 0.02 B-Natriuretic Peptide 323.0 H* TSH 0.26 L Digoxin 06/09/17 06/09/17 03:25 04:59 WBC RBC Hgb Hct MCV MCH MCHC RDW Plt Count MPV Absolute Neuts (auto) Absolute Lymphs (auto) Absolute Monos (auto) Absolute Eos (auto) Absolute Basos (auto) Neutrophils % Lymphocytes % Monocytes % Eosinophils % Basophils % PT INR PTT (SP) D-Dimer, Quantitative Sodium Potassium Chloride Carbon Dioxide Anion Gap BUN Creatinine BUN/Creatinine Ratio Random Glucose Serum Osmolality Calcium Magnesium Creatine Kinase CK-MB (CK-2) CK-MB (CK-2) % Troponin I 0.09 H* B-Natriuretic Peptide TSH Digoxin 0.9 L - EKG/XRAY/CT EKG: Sinus Comments: Heart Rate 77 CT Ordered: Yes Departure - Departure Clinical Impression: Chest heaviness, Non-ST elevation MS (NSTEMI), History of atrial fibrillation Headache Qualifiers: Headache type: unspecified Headache chronicity pattern: unspecified pattern Intractability: not intractable Qualified Code(s): R51 - Headache Time of Disposition: 06:00 Disposition: Transfer to Hospital Condition: Good Departure Forms: Patient Portal Self Enrollment Referrals: Ortiz Begum MD [Primary Care Provider] - 1-2 Weeks Home Medications: Ambulatory Orders ALPRAZolam [Xanax] 0.25 mg PO PRN PRN 08/20/14 Omeprazole 20 mg PO DAILY 08/20/14 Metformin HCl 500 mg PO BID 04/29/15 Oxybutynin Chloride [Ditropan] 5 mg PO DAILY 04/29/15 Atenolol [Tenormin] 50 mg PO BID #0 06/05/17 Digoxin [Lanoxin] 0.25 mg PO Q12N #30 tab 06/05/17 Cyclobenzaprine HCl [Flexeril] 10 mg PO Q8H PRN #20 tab 06/07/17 Rivaroxaban [Xarelto] 20 mg PO DAILY 06/09/17 Transfer to Outside Facility - Transfer Information Accepting Provider:: Dr. 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
[2017-06-09] MEDS ORDERED: fentaNYL CITRATE INJ 50 MCG/ML AMP IV ONE ×2 (04:48→06:02)
[2017-06-09] MEDS ORDERED: HYDROcodone 7.5MG/APAP 325MG 1 EA TAB PO ONE (05:17)
--- NOTE | 2017-06-09 05:17 | CT ---
Procedure: CT HEAD WITHOUT IV CONTRAST Exam Date: 06/09/2017 Ordering Provider: Ashwin Willams Clinical Indication: headache taking Xarelto Comparison: 06/06/2017 Technique: Using a helical scanner, sequential axial imaging of the brain was obtained without the administration of intravenous contrast. The exam was obtained from the skull base to vertex. This exam was performed according to our departmental dose optimization program which includes use of automated exposure control, adjustment of the mA and/or kV according to patient size and/or use of iterative reconstruction technique. Findings: Ventricular size and configuration are normal. There is no midline shift or hydrocephalus. There is no acute intracranial hemorrhage or mass effect. There is no acute infarct. Cortical prince matter, subcortical white matter, and periventricular white matter have normal appearance. The calvarium is intact. There is no fracture. There is no lytic or sclerotic lesion. The visualized paranasal sinuses and mastoid air cells are unremarkable. IMPRESSION: No acute intracranial abnormality demonstrated. Electronically signed by: Houston Fonseca MD 06/09/2017 5:16 AM CDT
[2017-06-09] MEDS ORDERED: PROMETHAZINE HCL INJ 25 MG/ML VIAL IM ONE (06:02)
[2017-06-09 06:27] VITALS: O2SAT 99
[2017-06-09 06:29] VITALS: BP 175/98; TEMP 98.5
== END 2017-06-09 06:50 | disposition short-term general hospital (02) ==
LOC: ER 03:13
DX: R51 Headache (principal); I21.4 Non-ST elevation (NSTEMI) myocardial infarction; I48.91 Unspecified atrial fibrillation; I10 Essential (primary) hypertension; J44.9 Chronic obstructive pulmonary disease, unspecified; E11.9 Type 2 diabetes mellitus without complications; Z87.891 Personal history of nicotine dependence; Z79.01 Long term (current) use of anticoagulants; Z79.899 Other long term (current) drug therapy
CPT/HCPCS: 36415; 70450; 80048; 80162; 82550; 82553; 83880; 84443; 84484; 85025; 85379; 85610; 85730; 93005; 94760; J2550; J3010

== ENCOUNTER 2017-06-18 17:07 | Inpatient (IN) | payer MEDICARE ==
[2017-06-18] MEDS: HYDROcodone 5MG/APAP 325MG 1 EA TAB PO PRN ×2 (15:16→22:22)
[2017-06-18] MEDS: GABAPENTIN 100 MG CAP PO SCH ×2 (15:16→21:20)
[~2017-06-18 17:07] MED LIST: ACETAMINOPHEN 500 MG TAB PO PRN; ACETAMINOPHEN W/COD #3 TAB 1 EA TAB PO PRN; ALPRAZolam 0.25 MG TAB PO PRN; DIGOXIN 0.25 MG TAB PO SCH; HYDROmorphone HCL INJ 2 MG/ML VIAL IV ONE; MAGNESIUM HYDROXIDE 30 ML UD PO PRN; SODIUM PHOS/BIPHOS ENEMA ADULT 133 ML BTTL PR PRN
--- NOTE | 2017-06-18 17:43 | ED.PDOC ---
History of Present Illness - General Chief Complaint: Back Pain or Injury Stated Complaint: back pain "pocket of blood in spine Time Seen by Provider: 06/18/17 17:13 Source: RN notes reviewed, Vital Signs reviewed, family, other - Hospitalist Exam Limitations: other - Just recieved Dilaudid - History of Present Illness Initial Comments: Patient was transferred here earlier today from [facility] for Swing bed and physical therapy. Hospitalist was told she was ambulatory. On arrival here she was found to not be ambulatory and can hardly move due to pain from a thoracic epidural hematoma. Request was made for ER evaluation for admission to the hospital for pain control. Timing/Duration: days Quality/Severity: severe Back Pain Location: T-spine Method of Injury/Prior Injury: other - Eipdural hematoma due to Xarelto Improving Factors: medication - Dilaudid Worsening Factors: movement Associated Symptoms: denies symptoms Allergies/Adverse Reactions: Allergies NO KNOWN ALLERGY Allergy (Verified 06/09/17 03:33) Home Medications: Ambulatory Orders ALPRAZolam [Xanax] 0.25 mg PO TID PRN 06/18/17 Acetaminophen W/ Codeine [Acetaminophen/Codeine Jacqueline] 1 tab PO Q4HR PRN 06/18/17 Acetaminophen [Tylenol] 625 mg PO Q4HR PRN 06/18/17 Amlodipine Besylate 5 mg PO BEDTIME 06/18/17 Aspirin [Aspirin Childrens] 81 mg PO DAILY 06/18/17 Atorvastatin Calcium [Lipitor] 80 mg PO BEDTIME 06/18/17 Baclofen 10 mg PO DAILY 06/18/17 Cyclobenzaprine HCl [Flexeril] 10 mg PO TID PRN 06/18/17 Digoxin 0.25 mg PO BID 06/18/17 Gabapentin 100 mg PO TID 06/18/17 Hydrochlorothiazide 25 mg PO DAILY 06/18/17 Omeprazole 20 mg PO DAILY 06/18/17 Oxybutynin Chloride 5 mg PO DAILY 06/18/17 Sotalol HCl 80 mg PO BID 06/18/17 Ticagrelor [Brilinta] 90 mg PO BID 06/18/17 Valsartan 320 mg PO DAILY 06/18/17 metFORMIN XR [Glucophage XR] 500 mg PO DAILY 06/18/17 Review of Systems - Review of Systems Unable to Obtain Due To: condition - Just recieved Dilaudid and though arousable she quickly falls back asleep and does not follow commands well. Past Medical History (General) - Patient Medical History Hx Seizures: No Hx Stroke: No Hx Asthma: No Hx of COPD: No Hx Cardiac Disorders: Yes - a.fib recent diagnosis Hx Congestive Heart Failure: No Hx Pacemaker: No Hx Hypertension: Yes Hx Diabetes: Yes Hx Cancer: No Hx Hepatitis C: No Hx MRSA: No - Vaccination History Hx Tetanus, Diphtheria Vaccination: No Hx Influenza Vaccination: Yes Hx Pneumococcal Vaccination: No - Social History Hx Tobacco Use: Yes Hx Alcohol Use: No Hx Substance Use: No Hx Physical Abuse: No Hx Emotional Abuse: No - Activities of Daily Living Hospice Agency (if applicable):: None - Female History Patient : No Family Medical History - Family History Mother Living Status: Hx Family Hypertension: Yes Physical Exam - Physical Exam General Appearance: Lethargic - due to narcotic pain medication, Well Developed , Well Hydrated, Well Nourished Cardiovascular/Respiratory: regular rate, rhythm, no M/R/G, normal breath sounds , no respiratory distress Gastrointestinal/Abdominal: normal bowel sounds, non tender, soft, no organomegaly Back Exam: vertebral tenderness - Throacic Extremity Exam: no evidence of injury Neurologic: other - Did move her arms and legs when aroused but could not do complete exam due to narcotics being on board Skin Exam: normal color, warm/dry Comments: Vital Signs 06/18/17 13:58 Temperature 97.2 F L Pulse Rate [ 83 Left brachial] Respiratory 15 Rate Blood Pressure 110/64 [Left FA] O2 Sat by Pulse 97 Oximetry Departure - Departure Clinical Impression: Nontraumatic epidural hematoma Time of Disposition: 17:47 Disposition: Admit Patient Condition: Poor Departure Forms: ED Discharge - Pt. Copy, Patient Portal Self Enrollment Referrals: Ortiz Begum MD [Primary Care Provider] - 1-2 Weeks Home Medications: Ambulatory Orders ALPRAZolam [Xanax] 0.25 mg PO TID PRN 06/18/17 Acetaminophen W/ Codeine [Acetaminophen/Codeine Jacqueline] 1 tab PO Q4HR PRN 06/18/17 Acetaminophen [Tylenol] 625 mg PO Q4HR PRN 06/18/17 Amlodipine Besylate 5 mg PO BEDTIME 06/18/17 Aspirin [Aspirin Childrens] 81 mg PO DAILY 06/18/17 Atorvastatin Calcium [Lipitor] 80 mg PO BEDTIME 06/18/17 Baclofen 10 mg PO DAILY 06/18/17 Cyclobenzaprine HCl [Flexeril] 10 mg PO TID PRN 06/18/17 Digoxin 0.25 mg PO BID 06/18/17 Gabapentin 100 mg PO TID 06/18/17 Hydrochlorothiazide 25 mg PO DAILY 06/18/17 Omeprazole 20 mg PO DAILY 06/18/17 Oxybutynin Chloride 5 mg PO DAILY 06/18/17 Sotalol HCl 80 mg PO BID 06/18/17 Ticagrelor [Brilinta] 90 mg PO BID 06/18/17 Valsartan 320 mg PO DAILY 06/18/17 metFORMIN XR [Glucophage XR] 500 mg PO DAILY 06/18/17 Decision To Admit - Decistion To Admit Decision to Admit Reason: Admit from ER Decision to Admit Date: 06/18/17 Decision to Admit Time: 17:47
[2017-06-18] MEDS: NYSTATIN POWDER 15GM BTTL TOP SCH ×2 (17:55→21:20)
[2017-06-18] MEDS ORDERED: ALUM & MAG HYDROX-SIMETHICONE 30 ML UD PO PRN (18:04)
[2017-06-18] MEDS ORDERED: cefTRIAXone SODIUM 1 GM VIAL ONE (18:15)
[2017-06-18] MEDS ORDERED: SODIUM CHL 0.9% 50ML MIN-BAG+ 50 ML IVPB ONE (18:15)
[2017-06-18] MEDS ORDERED: cefTRIAXone SODIUM 1 GM in SODIUM CHL 0.9% 50ML MIN-BAG+ 50 ML IVPB SCH (18:30)
[2017-06-18] MEDS ORDERED: IV SET AND CAP CHANGE INJ INJ SCH (18:30)
[2017-06-18] MEDS ORDERED: KCL 20 MEQ/NS 1,000 ML IVS PRN (19:10)
[2017-06-18] MEDS ORDERED: KCL 20 MEQ/NS 1,000 ML IVS ONE (20:13)
[2017-06-18] MEDS ORDERED: GLUCAGON INJ 1 MG VIAL SUBCU PRN (20:16)
[2017-06-18] MEDS ORDERED: DEXTROSE 50% 25 GM/50 ML SYG IV PRN (20:16)
[2017-06-18] MEDS ORDERED: SODIUM CHLORIDE 0.9% 1000ML 1,000 ML ONE (20:21)
[2017-06-18] MEDS ORDERED: NON-FORMULARY MEDICATION 1 EA MIS (Ticagrelor [Brilinta] 90 MG) PO SCH (21:00)
--- NOTE | 2017-06-18 21:00 | PCM.CORE ---
Physician DVT/VTE - Contraindications Medication Contraindication: Medical Contraindication - t11 epidural hematoma and antiplatlet - Nurse DVT Assessment & Total Each Risk Factor Represents 3 Points: Medical PT with Hx of NM, CHF, Severe infection/sepsis Each Risk Factor Represents 2 Points: Age 60-74 Each Risk Factor is 1 Point: Obesity (BMI >25) DVT Assessment Score: 6 - 5 or more Very High Risk Treatments: Early Ambulation *, Sequential Compression Device
[2017-06-18] MEDS: TEMAZEPAM 15 MG CAP PO PRN (21:19)
[2017-06-18] MEDS: SOTALOL 80 MG TAB PO SCH (21:20)
[2017-06-18] MEDS: amLODIPine BESYLATE 5 MG TAB PO SCH (21:20)
[2017-06-18] MEDS: ATORVASTATIN 20 MG TAB PO SCH (21:20)
[2017-06-18] MEDS: INSULIN LISPRO 100 UNITS/ML PEN SUBCU SCH (21:21)
--- NOTE | 2017-06-18 21:55 | HP ---
SUPERVISING PHYSICIAN: Onel Thompson MD CHIEF COMPLAINT: Severe back pain. HISTORY OF PRESENT ILLNESS: Ms. Burnett is a 67-year-old, female patient that was recently at [facility]. She was transferred from [facility] on 06/09/17 for a non-ST elevation myocardial infarction. On 06/10/17, Dr. Millan did a cardiac cath and a stent was placed in the left anterior descending. On 06/13/17, the patient began to have back pain. MRI was completed and noted a thoracic epidural hematoma. Significant history was that the patient had recently been seen and treated for atrial fibrillation and started on Eliquis, but due to financial difficulties was unable to afford this and was transitioned to Xarelto. The patient at [facility] was treated with 72 hours of steroids and MRI was repeated at 72 hours showing no significant changes. Request from [facility] for admission to Swing Bed was secured, however, upon admission to the Medical/Surgical Floor at [facility], the patient was in severe debilitating back pain and was then sent back to the Emergency Department at [facility] for reevaluation and is now going to be admitted to the Medical/ Surgical Floor for further monitoring and aggressive pain management for the thoracic epidural hematoma. PAST MEDICAL HISTORY: 1. Type 2 diabetes mellitus. 2. Hypertension. 3. Stress incontinence. 4. Arthritis. 5. Recent non-ST elevation myocardial infarction on 06/09/17 with stent placement to the left anterior descending. 6. Thoracic epidural hematoma. PAST SURGICAL HISTORY: 1. Tonsillectomy and adenoidectomy. 2. Hysterectomy. 3. Appendectomy. 4. x2. 5. Left foot surgery. 6. Left hand surgery. 7. Right total knee replacement in 2016. 8. Cardiac cath with stent placement in the left anterior descending on 06/10/17. CURRENT MEDICATIONS: Please refer to updated list of verified medications at time of admission. The patient was discharged with: 1. Xanax 0.25 mg t.i.d. as needed. 2. Sotalol HCL 80 mg twice daily. 3. Oxybutynin chloride 5 mg daily. 4. Metformin 500 mg daily. 5. Omeprazole 20 mg daily. 6. Gabapentin 100 mg t.i.d. 7. Flexeril 10 mg t.i.d. p.r.n. 8. Digoxin 0.25 mg b.i.d. 9. Baclofen 10 mg daily. 10. Aspirin 81 mg daily. 11. Amlodipine 5 mg daily. 12. Tylenol No. 3 1 tablet q.4h. as needed for pain. 13. Tylenol 325 mg q.24h. for pain. 14. Valsartan 320 mg daily. 15. Brilinta 90 mg twice daily. 16. Hydrochlorothiazide 25 mg daily. 17. Lipitor 80 mg daily. ALLERGIES: NO KNOWN DRUG ALLERGIES. FAMILY HISTORY: Significant for cardiovascular disease, cancer and diabetes. SOCIAL HISTORY: The patient is disabled, . She does live in [place]. She has a history of smoking 1 to 1-1/2 pack of cigarettes for well over 30 years. but stopped in 2016. She has never used alcohol and she denies any illicit drug use. REVIEW OF SYSTEMS: Difficult to obtain secondary to pain management with Dilaudid. PHYSICAL EXAMINATION: VITAL SIGNS: Temperature 97.2. Pulse 83. Blood pressure 110/64. Respirations 21. O2 saturation 95% on room air. Admission weight 92.3 kg. GENERAL: The patient on admission to the Medical/Surgical Floor was in obvious pain, moaning with minimal movement, but became comfortable after 1 mg of Dilaudid. HEENT: Tympanic membranes clear bilaterally. Oropharynx is pink, moist without any lesions. NECK: Supple, nontender with full range of motion. No jugular venous distention noted. CHEST: Lungs clear to auscultation, just slightly diminished towards the bases, but no rhonchi, wheezes, or rales. CARDIOVASCULAR: Regular rate and rhythm without any appreciable murmurs, gallops, or rubs. ABDOMEN: Soft, nontender. Positive bowel sounds. GENITOURINARY: Ramirez catheter in place from [facility] on transfer. EXTREMITIES: There is no cyanosis, clubbing or edema. NEUROLOGIC: The patient was lethargic, but easily arousable after she was given Dilaudid. She was alert to herself and family members. Cranial nerves II-XII are grossly intact. The patient denied any sensory deficits to the lower extremities. She was moving all extremities ad parul although with obvious pain. No notable weakness or focal motor deficits. LABORATORY: White count 17.6, hemoglobin 13.0, hematocrit 39.4, platelet count 340,000, differential with left shift. Chemistries showed hyponatremia with sodium 132, potassium 3.7, BUN 37, creatinine 0.82, calcium 8.9, total bilirubin slightly elevated at 1.3. Liver functions within normal limits. Urinalysis on a specimen from Ramirez catheter showed 15 ketones. Microscopic showed 2+ bacteria with 4+ amorphus, but no WBCs or RBCs. Toxicology: Digoxin level 3.4. 12-lead EKG pending. RADIOLOGY: Review of medical records from [facility] showed she had two MRIs completed, one on 06/13/17 showing a thoracic epidural hematoma. Please refer to that report in the chart for full details. She also had a repeat MRI of the lumbar spine of the back on 06/16/17 with no significant changes noted. Please refer to that report in the chart for full details. ASSESSMENT: 1. Thoracic epidural hematoma, nontraumatic, secondary to recent anticoagulation with Xarelto. 2. Recent non-ST elevation myocardial infarction on 06/09/17 with stent placement to the left anterior descending. 3. Type 2 diabetes mellitus. 4. Hypertension. 5. Arthritis. 6. Renal insufficiency with elevated BUN likely secondary to prerenal azotemia and some mild dehydration. 7. Mild dehydration noted with elevated BUN. 8. Leukocytosis, uncertain etiology although the patient has had a recent non- ST elevation myocardial infarction as well as ongoing thoracic epidural hematoma and remains afebrile, possibly secondary to acute cystitis secondary to a Ramirez catheter placement prior to admission. 9. Acute cystitis secondary to Ramirez catheter placement prior to admission, Ramirez placed at [facility]. 10. History of atrial fibrillation on digoxin with a critical level of digoxin on admission of 3.4. 11. Digoxin toxicity with elevated digoxin of 3.4 on admission. PLAN: The patient initially was to be admitted to Swing Bed, however, on arrival for Swing Bed admission, the patient was found to be in acute distress and therefore was sent to the Emergency Room for evaluation and based on current acute findings, the patient is now going to be placed in observation for further evaluation and more aggressive pain management. Given the dig level , we will hold the dig and check and EKG and monitor closely. For the dehydration, I plan to start her on some IV fluids with normal saline with 20 of potassium at 80 an hour and monitor potassium levels closely. We will exchange the Ramirez catheter and await culture results. In the interim, we will cover the patient for acute cystitis with Rocephin. Given that she does have a thoracic epidural hematoma, Lovenox is contraindicated and she is on an antiplatelet medication from previous stent placement, therefore, the Lovenox will be held and she will have SCDs and encouraged to ambulate. We will get a physical therapy evaluation to further evaluate the patient's potential for rehabilitation. We will utilize Dilaudid initially for pain control and once better controlled, attempt to deescalate pain regimen from Dilaudid to p.o. medications. We need to touch base tomorrow with her neurosurgeon, Dr. Shabazz , in regard to further treatment and plan for management of the thoracic epidural hematoma and need for possible followup MRIs. We will anticipate length of stay to be one to two days and hopefully if able to control pain with oral medication and the patient can participate with physical therapy, the patient could be discharged from Acute Care and admitted to Swing Bed for ongoing rehabilitation and reconditioning. Until then, we will continue to monitor the patient closely given the leukocytosis, the underlying urinary tract infection, and the elevated digoxin, the patient certainly warrants at least 24 to 48 hours hospitalization to further stabilize prior to transition to Swing Bed status. Until then, we will continue to monitor the patient closely and treat appropriately. #[id number] [facility]
[2017-06-18] MEDS: SODIUM CHLORIDE 0.9% 1000ML 1,000 ML IVS PRN (22:22)
[2017-06-18] MEDS: SODIUM CHLORIDE 0.9% (FLUSH) 10 ML SYG IV PRN (22:22)
[2017-06-19] MEDS: HYDROmorphone HCL INJ 2 MG/ML VIAL IV PRN ×5 (01:18→20:59)
[2017-06-19] MEDS: SODIUM CHLORIDE 0.9% (FLUSH) 10 ML SYG IV PRN ×2 (01:18→20:59)
[2017-06-19] MEDS: CYCLOBENZAPRINE HCL 10 MG TAB PO PRN (04:39)
[2017-06-19] MEDS ORDERED: OMEPRAZOLE CAP 20 MG CAP ONE (04:43)
[2017-06-19] MEDS ORDERED: OMEPRAZOLE CAP 20 MG CAP PO SCH (06:30)
[2017-06-19] MEDS ORDERED: SODIUM CHL 0.9% 50ML MIN-BAG+ 50 ML IVPB ONE ×2 (07:18→19:38)
[2017-06-19] MEDS ORDERED: ASPIRIN (CHEWABLE) 81 MG TAB ONE (07:18)
[2017-06-19] MEDS ORDERED: BACLOFEN 10 MG TAB ONE (07:18)
[2017-06-19] MEDS ORDERED: cefTRIAXone SODIUM 1 GM VIAL ONE ×2 (07:19→19:38)
[2017-06-19] MEDS ORDERED: OXYBUTYNIN CL 5 MG TAB ONE (07:19)
[2017-06-19] MEDS ORDERED: DOCUSATE SODIUM 100 MG CAP ONE (07:19)
[2017-06-19] MEDS ORDERED: hydroCHLOROthiazide 25 MG TAB ONE (07:19)
[2017-06-19] MEDS ORDERED: VALSARTAN 80 MG TAB ONE (07:19)
[2017-06-19] MEDS: INSULIN LISPRO 100 UNITS/ML PEN SUBCU SCH ×4 (07:24→21:00)
[2017-06-19] MEDS: metFORMIN XR 500 MG TAB.ER.24 PO SCH (07:42)
[2017-06-19] MEDS: BACLOFEN 10 MG TAB PO SCH (08:32)
[2017-06-19] MEDS: DOCUSATE SODIUM 100 MG CAP PO SCH (08:32)
[2017-06-19] MEDS: SOTALOL 80 MG TAB PO SCH ×2 (08:32→20:48)
[2017-06-19] MEDS: hydroCHLOROthiazide 25 MG TAB PO SCH (08:32)
[2017-06-19] MEDS: GABAPENTIN 100 MG CAP PO SCH ×3 (08:33→20:48)
[2017-06-19] MEDS: OXYBUTYNIN CL 5 MG TAB PO SCH (08:33)
[2017-06-19] MEDS: VALSARTAN 80 MG TAB PO SCH (08:33)
[2017-06-19] MEDS: ASPIRIN (CHEWABLE) 81 MG TAB PO SCH (08:33)
[2017-06-19] MEDS ORDERED: MAGNESIUM HYDROXIDE 30 ML UD PO ONE (08:46)
[2017-06-19] MEDS: NYSTATIN POWDER 15GM BTTL TOP SCH ×4 (09:14→20:49)
[2017-06-19] MEDS: cefTRIAXone SODIUM 1 GM in SODIUM CHL 0.9% 50ML MIN-BAG+ 50 ML IVPB SCH ×2 (09:19→20:49)
[2017-06-19] MEDS: CLOPIDOGREL 75 MG TAB PO SCH (09:20)
[2017-06-19] MEDS: SODIUM CHLORIDE 0.9% 1000ML 1,000 ML IVS PRN ×2 (11:03→23:51)
--- NOTE | 2017-06-19 13:28 | PN ---
SUPERVISING PHYSICIAN: Onel Thompson MD DATE: 06/19/17 SUBJECTIVE: The patient is sleeping in her bed. She has just received pain medication. She does open her eyes and follow some simple commands. Her family is at bedside. They state she has been in quite a bit of pain lately, but seems to be some better at this time. OBJECTIVE: VITAL SIGNS: Afebrile. Heart rate 81. Blood pressure 117/83. Respiratory rate 16. O2 sat 98%. LUNGS: Essentially clear to auscultation bilaterally. CARDIAC: Regular rate and rhythm. ABDOMEN: Soft, nontender, nondistended. Bowel sounds are positive. NEUROLOGIC: She is lethargic. She opens her eyes and follows simple commands. LABORATORY: WBC slightly up to 17.6 with neutrophils of 83.4. Hemoglobin 12.9 , hematocrit 39.6. Sodium 136, potassium 3.6, chloride 97, carbon dioxide 27, BUN 36, creatinine 0.88. Blood sugars have run between 128 and 146. AST slightly elevated at 51. Globulin 3.7. Digoxin level is 3.3. Preliminary urine culture shows gram positive cocci. All other labs and films have been reviewed via the EMR. ASSESSMENT: 1. Urinary tract infection with gram positive cocci noted on preliminary urine cultures, presently on Rocephin. 2. Thoracic epidural hematoma, nontraumatic, secondary to recent anticoagulation with Xarelto. 3. Recent non-ST elevation myocardial infarction on 06/09/17 with stent placement to the left anterior descending coronary artery. 4. Type 2 diabetes mellitus. 5. Hypertension. 6. Arthritis. 7. Renal insufficiency with elevated BUN likely secondary to prerenal azotemia and some mild dehydration. 8. Mild dehydration. 9. Leukocytosis. 10. Acute cystitis with recently changed Ramirez catheter and urine culture pending, preliminary showing gram positive cocci. 11. History of atrial fibrillation on digoxin with a critical level of digoxin on admission of 3.4, now down to 3.3. 12. Digoxin toxicity. PLAN: We will continue present supportive care. We will monitor her digoxin levels closely. I have placed a call to Dr. Shabazz, neurosurgeon in [place], to get his recommendations on the followup on her thoracic epidural hematoma and what he would like for her activity levels. I am going to leave her on Rocephin at this point until her cultures become available tomorrow and then as needed we will change her antibiotics. After we get clarification of her activity level, at some point I hope we can get her with physical therapy for strengthening and conditioning. We will also watch her digoxin level. It maybe recommended that Dr. Mayen can see her here in the hospital on Sunday if she is still here. At this point, we will try to decelerate her pain medications and continue to watch her closely. I will order routine labs for in the morning including a dig level. We will continue to monitor the patient closely and follow as needed. ADDENDUM: I spoke with Dr. Shabazz, neurosurgeon in [place], [place]. His recommendations for activity are for patient to be up to bedside commode or she can walk a few feet if near a bathroom. She can also do basic range of motion for her lower extremetis. Otherwise no bending or twisting for at least 3 weeks or until her follow up with Dr. Shabazz. She will also need an MRI before seeing him. I have ordered appropriate activity level and Physical Therapy orders as recommended by Dr. Shabazz. #[id number] [facility]
[2017-06-19] MEDS: HYDROcodone 5MG/APAP 325MG 1 EA TAB PO PRN (19:49)
[2017-06-19] MEDS: amLODIPine BESYLATE 5 MG TAB PO SCH (20:48)
[2017-06-19] MEDS: ATORVASTATIN 20 MG TAB PO SCH (20:48)
[2017-06-19] MEDS: TEMAZEPAM 15 MG CAP PO PRN (20:49)
[2017-06-20] MEDS ORDERED: PANTOPRAZOLE SODIUM TAB 40 MG PO ONE (03:56)
[2017-06-20] MEDS: HYDROmorphone HCL INJ 2 MG/ML VIAL IV PRN ×3 (04:18→14:30)
[2017-06-20] MEDS: SODIUM CHLORIDE 0.9% (FLUSH) 10 ML SYG IV PRN (04:18)
[2017-06-20] MEDS ORDERED: PANTOPRAZOLE SODIUM TAB 40 MG PO SCH (06:30)
[2017-06-20] MEDS ORDERED: SODIUM CHL 0.9% 50ML MIN-BAG+ 50 ML IVPB ONE (07:20)
[2017-06-20] MEDS ORDERED: cefTRIAXone SODIUM 1 GM VIAL ONE (07:21)
[2017-06-20] MEDS: metFORMIN XR 500 MG TAB.ER.24 PO SCH (07:48)
[2017-06-20] MEDS: INSULIN LISPRO 100 UNITS/ML PEN SUBCU SCH ×3 (07:52→17:20)
[2017-06-20] MEDS: cefTRIAXone SODIUM 1 GM in SODIUM CHL 0.9% 50ML MIN-BAG+ 50 ML IVPB SCH (08:34)
[2017-06-20] MEDS: CLOPIDOGREL 75 MG TAB PO SCH (08:35)
[2017-06-20] MEDS: VALSARTAN 80 MG TAB PO SCH (08:35)
[2017-06-20] MEDS: DOCUSATE SODIUM 100 MG CAP PO SCH (08:35)
[2017-06-20] MEDS: BACLOFEN 10 MG TAB PO SCH (08:35)
[2017-06-20] MEDS: GABAPENTIN 100 MG CAP PO SCH ×2 (08:36→15:44)
[2017-06-20] MEDS: HYDROcodone 5MG/APAP 325MG 1 EA TAB PO PRN ×2 (08:36→13:29)
[2017-06-20] MEDS: OXYBUTYNIN CL 5 MG TAB PO SCH (08:36)
[2017-06-20] MEDS: hydroCHLOROthiazide 25 MG TAB PO SCH (08:36)
[2017-06-20] MEDS: SOTALOL 80 MG TAB PO SCH (08:36)
[2017-06-20] MEDS: CYCLOBENZAPRINE HCL 10 MG TAB PO PRN (08:36)
[2017-06-20] MEDS: ASPIRIN (CHEWABLE) 81 MG TAB PO SCH (08:36)
[2017-06-20] MEDS: NYSTATIN POWDER 15GM BTTL TOP SCH ×3 (08:45→17:26)
[2017-06-20] MEDS ORDERED: MAGNESIUM HYDROXIDE 30 ML UD PO PRN (09:37)
[2017-06-20] MEDS ORDERED: levoFLOXacin 500MG IV 500 MG in PREMIX BAG 1 BAG IVPB SCH (12:00)
[2017-06-20] MEDS ORDERED: DIGOXIN 0.125 MG TAB PO SCH (12:00)
[2017-06-20] MEDS ORDERED: POTASSIUM CHLORIDE 20 MEQ TAB PO ONE (12:01)
[2017-06-20] MEDS ORDERED: levoFLOXacin 500MG IV 100 ML IVPB ONE (12:13)
[2017-06-20] MEDS: SODIUM CHLORIDE 0.9% 1000ML 1,000 ML IVS PRN (12:18)
--- NOTE | 2017-06-20 13:31 | PN ---
SUPERVISING PHYSICIAN: Onel Thompson MD DATE: 06/20/17 SUBJECTIVE: The patient is lying in bed. She is quite lethargic. Family is at bedside and said that other than the pain issues, she has had no other complaints. The patient does open her eyes. She does answer with some simple yes/no questions. OBJECTIVE: VITAL SIGNS: Afebrile. Heart rate 85. Blood pressure 106/71. Respiratory rate 16. O2 saturation 92% on 2 liters nasal cannula. LUNGS: Essentially clear to auscultation although she is quite diminished at the bases. CARDIAC: Slightly irregular rhythm, regular rate. ABDOMEN: Soft, nondistended, nontender. Bowel sounds are positive. EXTREMITIES: No cyanosis, clubbing or edema. NEUROLOGIC: She is lethargic. She opens her eyes. She follows commands and answers simple yes/no questions. LABORATORY: WBC 17.2, hemoglobin 11.6, hematocrit 34.8. Neutrophils 84.8%. Potassium slightly low at 3.5, BUN 33, creatinine 0.72. Blood sugars have run between 136 and 151. AST 48, protein 6.1, albumin 2.8. Digoxin level this morning is 1.6. Her urine culture shows strep agalactiae group B. All other labs and films have been reviewed via the EMR. ASSESSMENT: 1. Urinary tract infection with Streptococcus agalactiae group B per urine culture, originally treated with Rocephin, now on Levaquin to which her culture shows sensitivity. 2. Thoracic epidural hematoma, nontraumatic, secondary to recent anticoagulation with Xarelto, being followed by Dr. Shabazz. Per Dr. Shabazz's instructions, she is to have no bending or twisting. She may sit and be assisted to the bedside commode as well as do lower extremity range of motion for 3 weeks. 3. Recent non-ST elevation myocardial infarction on 06/09/17 with stent placement to the left anterior descending coronary artery, being followed by Dr. Mayen. 4. Type 2 diabetes mellitus. 5. Hypertension. 6. Arthritis. 7. Renal insufficiency, improved. 8. Mild dehydration. 9. Leukocytosis. 10. Acute cystitis with recently changed Ramirez catheter. 11. History of atrial fibrillation on digoxin. She was admitted with a critical level of digoxin on admission of 3.4, now down to 1.6. PLAN: We will continue present supportive care. I have discontinued her Rocephin and started her on Levaquin per sensitivities on her urine culture. She is to have limited activity due to concerns from Dr. Shabazz, her neurosurgeon. At this point today, per physical therapy, she was unable to sit on the side of the bed. Her strengthening so far has been very slow. She will most likely need a long-term care facility to help with her activities of daily living until she is cleared by Dr. Shabazz in about 3 weeks. She is to have no twisting or bending due to the epidural hematoma. She can ambulate to the bedside commode and sit on the side of the bed as well as have lower extremity range of motion excise, which physical therapy is doing at this time. We will have to have a long-term discharge plan. I have restarted her digoxin at 0.125 mg and I will recheck her dig tomorrow. She would most likely benefit from seeing Dr. Mayen on Sunday and we need to talk to him about her anticoagulation. She is on Plavix presently and she is at risk for DVTs. She has SCD hose at this time, but due to her condition, we will need to make sure that all those bases are covered in regard to any complications that could arise due to a DVT. I have ordered good pulmonary hygiene. She will need to keep her catheter at this time due to her immobility and the difficulty with moving her as well as cleaning her. Hopefully in the next day or 2 we can do some bladder training as she becomes more mobile. I have ordered routine lab for in the morning. We will continue to monitor the patient closely and follow as needed. Dr. Thompson is the collaborating physician and available for consultation. #[id number] [facility]
[2017-06-20] MEDS ORDERED: POTASSIUM CHLORIDE ELIXIR 20 MEQ/15 ML UD PO ONE (14:30)
[2017-06-20 15:38] VITALS: TEMP 97.7
--- NOTE | 2017-06-20 16:19 | MRI ---
EXAM DESCRIPTION: Thoracic Spine w/wo Contrast CLINICAL HISTORY: 67 years Female, thoracic epidural hematoma COMPARISON: None. TECHNIQUE: Multiplanar, multisequence MR images of the thoracic spine are obtained with and without infusion of IV gadolinium contrast using standard imaging. FINDINGS: Thoracic vertebral bodies show normal height without compression deformity. Normal kyphosis of the thoracic spine is seen. There is desiccation of the disc spaces throughout the thoracic spine. Marked severe diffuse disc space narrowing is seen from T4 through T12. Trace retrolisthesis of T11 on T12 is seen. Mild 2 to 3 mm posterior circumferential ridging disc osteophyte complexes are seen from T3 through T8 without significant spinal canal stenosis. Anterior right hypertrophic marginal endplate osteophytes in the mid to lower thoracic spine are seen. There is a mass or fluid collection probably in the epidural space on the posterior to the left aspect of the spinal canal at T11 measuring 2.7 cm craniocaudal by 0.7 cm AP and 1.5 cm transverse. This contacts and displaces the spinal cord to the anterior right aspect of the spinal canal mildly flattening the posterior left aspect of the spinal cord without cord signal abnormality. There is a linear 4 mm thickness area of increased T2 mildly increased T1 signal in the posterior left aspect of the spinal canal over a length of 3.2 cm at the T8-9 level. No significant foraminal encroachment is seen. Surrounding soft tissues show moderate tortuosity of the thoracic aorta. No abnormal areas of enhancement are seen. Mild basilar atelectasis in the lower lung traylor is seen. IMPRESSION: Localized area of probable epidural hemorrhage in the thoracic spinal canal most prominent at the T11 level resulting in mild mass effect and displacement of the spinal cord. Small amount of epidural hemorrhage in the more cephalic spinal cord at the T8-9 level is seen without significant mass effect on the spinal cord. Moderate to severe multilevel disc degenerative changes of the thoracic spine are seen. Findings on this exam were called to Dr. Redding at 1608 hours on June 20, 2017.. Electronically signed by: Keyshawn Carvalho MD 06/20/2017 4:17 PM CDT
[2017-06-20 17:18] VITALS: BP 101/71; O2SAT 96
[2017-06-20] MEDS ORDERED: HYDROmorphone HCL INJ 2 MG/ML VIAL IV ONE (17:26)
--- NOTE | 2017-06-20 18:41 | DS ---
SUPERVISING PHYSICIAN: Onel Thompson M.D. DISCHARGE DIAGNOSIS: 1. Urinary tract infection with Streptococcus agalactiae group B per urine culture, originally treated with Rocephin, now on Levaquin to which her culture shows sensitivity. 2. Thoracic epidural hematoma, nontraumatic, secondary to recent anticoagulation with Xarelto, being followed by Dr. Shabazz. Per Dr. Shabazz's instructions, she is to have no bending or twisting. She may sit and be assisted to the bedside commode as well as do lower extremity range of motion for 3 weeks. 3. Recent non-ST elevation myocardial infarction on 06/09/17 with stent placement to the left anterior descending coronary artery, being followed by Dr. Mayen. 4. Type 2 diabetes mellitus. 5. Hypertension. 6. Arthritis. 7. Renal insufficiency, improved. 8. Mild dehydration. 9. Leukocytosis. 10. Acute cystitis with recently changed Ramirez catheter. 11. History of atrial fibrillation on digoxin. She was admitted with a critical level of digoxin on admission of 3.4, now down to 1.6. She has been having occasional runs of atrial fibrillation up to the 150s and has been restarted on digoxin at 0.125 mg daily. HISTORY OF PRESENT ILLNESS: Ms. Burnett is a 67-year-old, female patient that was recently at [facility]. She was transferred from [facility] on 06/09/17 for a non-ST elevation myocardial infarction. On 06/10/17, Dr. Millan did a cardiac cath and a stent was placed in the left anterior descending. On 06/13/17, the patient began to have back pain. MRI was completed and noted a thoracic epidural hematoma. Significant history was that the patient had recently been seen and treated for atrial fibrillation and started on Eliquis, but due to financial difficulties was unable to afford this and was transitioned to Xarelto. The patient at [facility] was treated with 72 hours of steroids and MRI was repeated at 72 hours showing no significant changes. Request from [facility] for admission to Swing Bed was secured, however, upon admission to the Medical/Surgical Floor at [facility], the patient was in severe debilitating back pain and was then sent back to the Emergency Department at [facility] for reevaluation and is now going to be admitted to the Medical/ Surgical Floor for further monitoring and aggressive pain management for the thoracic epidural hematoma. HOSPITAL COURSE: Overnight after admission, she continued to have extremely significant pain, especially in the thoracic spine region. She was receiving Dilaudid quite frequently for the pain. In addition, her initial urine cultures were showing gram positive cocci and she was on Rocephin. Her urine cultures eventually came back and showed Streptococcus agalactiae Group B which was sensitive to Levaquin and she was changed to IV Levaquin antibiotics. She also had several bouts of atrial fibrillation with RVR up to the 150s. Her initial digoxin level was 3.4. On the day of discharge, it was down to 1.6 and she was restarted on digoxin at a lower dose of 0.125 mg. She continued to have an elevated white blood cell count of 17.2 with neutrophils of 84.8%. It was very difficult to control her pain. Also, Dr. Shabazz, her neurosurgeon in [place], was contacted in regards to her pain and the followup care for her thoracic epidural hematoma, and he recommended that there be no bending or twisting. The patient could be log rolled and she could walk with assistance to her bedside commode. She could also have ROM exercises to her lower extremities, but other than that she should have very minimal activity until she followed-up with him in approximately 3 weeks. Today, an MRI was done because the patient was having a very difficult time moving, although she could wiggle her lower extremities without problems. She was very weak, so an MRI of the thoracic spine was completed and per radiology interpretation showed localized area of probable epidural hemorrhage in the thoracic spinal cavity most prominent at the T11 level resulting in mild mass effect and displacement of the spinal cord. Small amount of epidural hemorrhage in the more cephalic spinal cord at the T8 to T9 level is seen without significant mass effect on the spinal cord. Moderate to severe multilevel disc degenerative changes of the thoracic spine are seen. After discussing her case with Dr. Thompson at length and after the examination by Dr. Thompson and myself, it was determined that she should be transferred to a hospital for a higher level of care. Dr. Barroso, hospitalist in [place] was called and we reviewed her case, and he has accepted her as transfer. DISCHARGE PLAN: The patient will be transferred to [facility]. Dr. Barroso, hospitalist for [facility] has accepted her. Her medications, labs and films were sent with the patient. She will be transported via ambulance to [place]. Her family was in agreement that she should go to [place]. They were concerned because her vice president mission integration, Dr. Mayen, is in [place] as well as her neurosurgeon, Dr. Khari Shabazz is there and felt that it was important that she see the specialist that she has seen in the past. The patient and the patient's family were given an update on the transfer as well as the findings on the MRI. The patient will be transferred in stable condition to [facility]. She is to followup with her primary care physician, Dr. Begum, after discharge. DISCHARGE MEDICATIONS: 1. Lipitor. 2. Metformin. 3. Valsartan. 4. Sotalol. 5. Oxybutynin. 6. Omeprazole. 7. Hydrochlorothiazide. 8. Gabapentin. 9. Cyclobenzaprine. 10. Baclofen. 11. Aspirin. 12. Amlodipine. 13. Acetaminophen with codeine. 14. Xanax. 15. Plavix. 16. Digoxin 0.125 mg. 17. Levaquin. 18. Nystatin. 19. Dilaudid which was a pain medication as an inpatient. Dr. Thompson is the collaborating physician available for consultation. #[id number] [facility]
== END 2017-06-20 17:45 | disposition short-term general hospital (02) | DRG 92 ==
LOC: ER 17:07 → EDSTATUS 17:07 → MS 17:42
PROVIDERS: ADMIT Nurse Practitioner Family; ATTEND Nurse Practitioner Acute Care
DX: G95.19 Other vascular myelopathies (principal); N30.00 Acute cystitis without hematuria; T45.515A Adverse effect of anticoagulants, initial encounter; I25.2 Old myocardial infarction; T83.511D Infection and inflammatory reaction due to indwelling urethral catheter, subsequent encounter; I48.91 Unspecified atrial fibrillation; T46.0X5A Adverse effect of cardiac-stimulant glycosides and drugs of similar action, initial encounter; E11.9 Type 2 diabetes mellitus without complications; I10 Essential (primary) hypertension; M19.90 Unspecified osteoarthritis, unspecified site; E86.0 Dehydration; N28.9 Disorder of kidney and ureter, unspecified; B95.1 Streptococcus, group B, as the cause of diseases classified elsewhere; Z95.5 Presence of coronary angioplasty implant and graft; Y92.230 Patient room in hospital as the place of occurrence of the external cause; Z79.02 Long term (current) use of antithrombotics/antiplatelets; Z79.82 Long term (current) use of aspirin; Z79.84 Long term (current) use of oral hypoglycemic drugs

== ENCOUNTER → 2017-07-30 | Outpatient (CLI) | payer MEDICARE | END | disposition home or self-care (01) | LOC: YCFC.O 12:28 | DX: R11.2 Nausea with vomiting, unspecified (principal) ==

== ENCOUNTER → 2017-07-31 | Outpatient (CLI) | payer MEDICARE | END | disposition home or self-care (01) | LOC: YCFC.O 09:19 | DX: R11.2 Nausea with vomiting, unspecified (principal); E78.00 Pure hypercholesterolemia, unspecified ==

== ENCOUNTER → 2017-09-10 | Outpatient (CLI) | payer MEDICARE ==
--- NOTE | 2017-09-11 08:02 | RAD ---
EXAM DESCRIPTION: Hip,Right 2 Views CLINICAL HISTORY: HIP PAIN, FALL 06/2017 COMPARISON: None Available. TECHNIQUE: AP/frog leg lateral FINDINGS: The right hip is moderately degenerative with mild acetabular sclerosis and marginal osteophyte formation and mild narrowing of the joint space. No fracture or dislocation is seen in the femoral head remains smooth and round. IMPRESSION: Modest degenerative changes. Electronically signed by: Xu Al MD 09/11/2017 8:00 AM [facility]
== END | disposition home or self-care (01) ==
LOC: RAD 10:01
PROVIDERS: ATTEND Obstetrics & Gynecology
DX: M25.551 Pain in right hip (principal)

== ENCOUNTER → 2017-09-17 | Outpatient (CLI) | payer MEDICARE ==
--- NOTE | 2017-09-19 13:28 | MAM ---
EXAM DESCRIPTION: 3D Screening BILATERAL : Digital Mammography. CLINICAL HISTORY: 67 years Female SCREENING . No complaints. No family history of breast cancer. Postmenopausal. Has taken HRT more than 5 years ago. COMPARISON: 2-D digital bilateral screening studies 09/13/2016 and 06/10/2015. Report from prior examination also reviewed. TECHNIQUE: Bilateral CC and MLO projection full-field images, 3-D tomosynthesis digital mammographic technique. Also bilateral synthesized CC/ MLO full-field images. CAD not utilized. FINDINGS: The breast parenchymal density pattern is: Scattered areas of fibroglandular density. No skin thickening or nipple retraction bilateral coarse calcifications and microcalcifications. Left axillary lymph nodes. Anterior left breast intramammary lymph nodes. No new focal, stellate mass or density, focal asymmetry , and no suspicious microcalcifications Stable mammograms compared to prior study, taking into account differences in mammographic technique IMPRESSION: BI-RADS CATEGORY: 2 - BENIGN FINDINGS. FOLLOW UP: Routine digital bilateral screening, one year interval from August 2017. Written communication explaining the IMPRESSION and follow-up, will be mailed to the patient and referring health care provider. According to the [employer], yearly mammograms are recommended starting at age 40 and continuing as long as a woman is in good health. Any breast change noted on a breast self-exam should be reported promptly to the patient's healthcare provider. Breast MRI is recommended for women with an approximately 20-25% or greater lifetime risk of breast cancer, including women with a strong family history of breast or ovarian cancer and women who have been treated for Hodgkin's disease. A negative mammographic report should not delay tissue diagnosis in patients with significant clinical history or physical findings. Extremely dense breast tissue limits the sensitivity of digital mammography. Electronically signed by: Mandeep De Los Santos MD 09/19/2017 1:26 PM [facility]
== END | disposition home or self-care (01) ==
LOC: MAMMO 13:30
DX: Z12.31 Encounter for screening mammogram for malignant neoplasm of breast (principal)
CPT/HCPCS: 77063; G0202

== ENCOUNTER → 2017-10-02 | Outpatient (CLI) | payer MEDICARE | END | disposition home or self-care (01) | LOC: LAB.O 12:55 | PROVIDERS: ATTEND Obstetrics & Gynecology | DX: E11.9 Type 2 diabetes mellitus without complications (principal); I25.10 Atherosclerotic heart disease of native coronary artery without angina pectoris ==

== ENCOUNTER → 2017-11-22 | Outpatient (CLI) | payer MEDICARE | LOC: LAB.O 12:12 | PROVIDERS: ATTEND Obstetrics & Gynecology | DX: E11.9 Type 2 diabetes mellitus without complications (principal); I10 Essential (primary) hypertension ==

== ENCOUNTER 2018-01-13 15:28 | Emergency (ER) | payer MEDICARE ==
[2018-01-13 15:41] VITALS: TEMP 97.9
[2018-01-13] MEDS ORDERED: LACTATED RINGERS 1,000 ML IVS ONE (15:47)
--- NOTE | 2018-01-13 15:49 | ED.PDOC ---
History of Present Illness - General Chief Complaint: Cardiovascular Problem Stated Complaint: feeling tired,chest pressure Time Seen by Provider: 01/13/18 15:44 Source: patient Exam Limitations: no limitations - History of Present Illness Initial Comments: Bri Burnett 67 y/o female stated that while she was resting at home felt sob, tired feeling and pressure down on her upper abdomen 1-2 hours ago.No dizziness.Has history of A.fib presently on Plavix.Her eliquis and Xarelto discontinued since she dveloped bleeding on her lumbar spine while she was in [facility]. Timing/Duration: 1-3 hours Severity: moderate Location: other - upper abdomen Activities at Onset: rest Prior Chest Pain/Cardiac Workup: cardiac cath, echocardiography Improving Factors: nothing, eating Nitro Today/Relief: no nitro taken today Aspirin Treatment Today: 81 mg x 1 Associated Symptoms: shortness of breath Allergies/Adverse Reactions: Allergies NO KNOWN ALLERGY Allergy (Verified 06/09/17 03:33) Home Medications: Ambulatory Orders ALPRAZolam [Xanax] 0.25 mg PO TID PRN 06/18/17 Atorvastatin Calcium [Lipitor] 20 mg PO BEDTIME 06/18/17 Gabapentin 300 mg PO TID 06/18/17 Omeprazole 20 mg PO DAILY 06/18/17 Oxybutynin Chloride 5 mg PO DAILY 06/18/17 metFORMIN XR [Glucophage Xr] 500 mg PO TID 06/18/17 Clopidogrel Bisulfate [Plavix] 75 mg PO DAILY 06/20/17 Digoxin [Lanoxin Tab] 0.125 mg PO DAILY@1200 06/20/17 Atenolol 100 mg PO DAILY 01/13/18 HYDROcodone 7.5MG/APAP 325MG [[place] 7.5/325] 1 tab PO TID 01/13/18 Miglitol [Glyset] 25 mg PO BID 01/13/18 Potassium Chloride [K-Tab] 10 meq PO DAILY 01/13/18 Triamterene & Hydrochlorothiaz [Triamterene/Hydrochloroth 75-50 mg] 1 tab PO DAILY 01/13/18 Review of Systems - Review of Systems Constitutional: States: no symptoms reported EENTM: States: no symptoms reported Respiratory: States: see HPI, short of breath Cardiology: States: see HPI Gastrointestinal/Abdominal: States: no symptoms reported Genitourinary: States: no symptoms reported Musculoskeletal: States: no symptoms reported Neurological: States: emotional problems - mentioned sometimes feels depressed All other Systems: Reviewed and Negative, No Change from Baseline Past Medical History (General) - Patient Medical History Hx Seizures: No Hx Stroke: No Hx Dementia: No Hx Asthma: No Hx of COPD: No Hx Cardiac Disorders: Yes - a.fib recent diagnosis,[place] Hx Congestive Heart Failure: No Hx Pacemaker: No Hx Hypertension: Yes Hx Thyroid Disease: No Hx Diabetes: Yes Hx Gastroesophageal Reflux: Yes Hx Renal Disease: No Hx Cancer: No Hx of HIV: No Hx Hepatitis C: No Hx MRSA: No Surgical History: appendectomy, cholecystectomy, tonsillectomy, other - cardiac stent,hysterectomy - Vaccination History Hx Tetanus, Diphtheria Vaccination: No Hx Influenza Vaccination: Yes Hx Pneumococcal Vaccination: Yes - Social History Hx Tobacco Use: Yes Hx Chewing Tobacco Use: No Hx Alcohol Use: No Hx Substance Use: No Hx Depression: No Hx Physical Abuse: No Hx Emotional Abuse: No Hx Suspected Abuse: No - Activities of Daily Living Patient Lives Alone: No Grooming Ability: Independent Eating (Feeding) Ability: Independent Toileting Ability: Independent - Female History Patient : No Family Medical History - Family History Mother Family History: No Known Living Status: Hx Family Hypertension: Yes Physical Exam - Physical Exam General Appearance: Alert, Comfortable, No apparent distress Eyes, Ears, Nose, Throat Exam: normal ENT inspection Neck: non-tender, supple Respiratory: lungs clear, normal breath sounds, no respiratory distress Cardiovascular/Chest: tachycardia - heart rate 130, irregularly irregular Peripheral Pulses: radial,right: 2+, radial,left: 2+ Gastrointestinal/Abdominal: non tender, soft Extremity: no pedal edema, no calf tenderness Neurologic: alert, oriented x 3 Skin Exam: normal color, warm/dry Progress - Progress Progress: 01/13/18 16:28 01/13/18 15:45 EKG STAT 01/13/18 15:47 Lactated Ringers [Lr] 1,000 ml IVS ONCE Chest,1 View [RAD] Stat URINALYSIS Stat 01/13/18 16:01 B-TYPE NATRIURETIC PEPTIDE/BNP Stat CARDIAC PANEL,ER Stat HEPATIC FUNCTION PANEL Stat 01/13/18 16:14 DIGOXIN Stat Laboratory Results - last 24 hr 01/13/18 16:01 WBC 10.2 RBC 4.41 Hgb 11.8 L Hct 35.5 L MCV 80.5 L MCH 26.7 L MCHC 33.1 RDW 17.6 H Plt Count 277 MPV 8.3 Absolute Neuts (auto) 7.00 H Absolute Lymphs (auto) 0.50 L Absolute Monos (auto) 1.10 H Absolute Eos (auto) 1.60 H Absolute Basos (auto) 0.00 Neutrophils % 68.4 Lymphocytes % 5.3 L Monocytes % 10.5 H Eosinophils % 15.8 H Basophils % 0.0 PT 11.4 INR 1.010 PTT (SP) 29.2 Sodium 140 Potassium 3.7 Chloride 103 Carbon Dioxide 25 Anion Gap 15.7 BUN 26 H Creatinine 1.00 BUN/Creatinine Ratio 26.0 H Random Glucose 183 H Serum Osmolality 288.9 Calcium 9.7 Magnesium 1.5 L Total Bilirubin 0.6 Direct Bilirubin < 0.1 Indirect Bilirubin 0.5 AST 35 ALT 33 Alkaline Phosphatase 75 Creatine Kinase 114 Troponin I < 0.02 Serum Total Protein 7.7 Albumin 4.3 01/13/18 18:29 Stating feels better no longer with chest pressure or sob 01/13/18 18:37 Vital Signs - 24 hr 01/13/18 01/13/18 01/13/18 15:38 15:54 15:55 Temperature 97.9 F Pulse Rate 124 H Pulse Rate [ 136 H 134 H Left Brachial] Respiratory 20 Rate Blood Pressure 96/68 [Left Arm] O2 Sat by Pulse 96 Oximetry 01/13/18 01/13/18 16:41 17:39 Temperature Pulse Rate Pulse Rate [ 85 79 Left Brachial] Respiratory 20 16 Rate Blood Pressure 111/61 102/52 [Left Arm] O2 Sat by Pulse 96 96 Oximetry - Results/Orders Results/Orders: 01/13/18 15:45 EKG STAT Laboratory Results - last 24 hr 01/13/18 01/13/18 01/13/18 16:01 16:14 17:20 WBC 10.2 RBC 4.41 Hgb 11.8 L Hct 35.5 L MCV 80.5 L MCH 26.7 L MCHC 33.1 RDW 17.6 H Plt Count 277 MPV 8.3 Absolute Neuts (auto) 7.00 H Absolute Lymphs (auto) 0.50 L Absolute Monos (auto) 1.10 H Absolute Eos (auto) 1.60 H Absolute Basos (auto) 0.00 Neutrophils % 68.4 Lymphocytes % 5.3 L Monocytes % 10.5 H Eosinophils % 15.8 H Basophils % 0.0 PT 11.4 INR 1.010 PTT (SP) 29.2 Sodium 140 Potassium 3.7 Chloride 103 Carbon Dioxide 25 Anion Gap 15.7 BUN 26 H Creatinine 1.00 BUN/Creatinine Ratio 26.0 H Random Glucose 183 H Serum Osmolality 288.9 Calcium 9.7 Magnesium 1.5 L Total Bilirubin 0.6 Direct Bilirubin < 0.1 Indirect Bilirubin 0.5 AST 35 ALT 33 Alkaline Phosphatase 75 Creatine Kinase 114 CK-MB (CK-2) 3.3 CK-MB (CK-2) % Not Reportable Troponin I < 0.02 B-Natriuretic Peptide 37.6 Serum Total Protein 7.7 Albumin 4.3 Urine Color Yellow Urine Appearance Clear Urine pH 5.5 Ur Specific [place] 1.010 Urine Protein 30 Urine Glucose (UA) Negative Urine Ketones Negative Urine Blood Negative Urine Nitrite Negative Urine Bilirubin Negative Urine Urobilinogen 0.2 Ur Leukocyte Esterase Negative Urine RBC 0-1 Urine WBC 1-3 Ur Epithelial Cells 0-1 Urine Bacteria 2+ H Digoxin 0.8 L 01/13/18 17:43 WBC RBC Hgb Hct MCV MCH MCHC RDW Plt Count MPV Absolute Neuts (auto) Absolute Lymphs (auto) Absolute Monos (auto) Absolute Eos (auto) Absolute Basos (auto) Neutrophils % Lymphocytes % Monocytes % Eosinophils % Basophils % PT INR PTT (SP) Sodium Potassium Chloride Carbon Dioxide Anion Gap BUN Creatinine BUN/Creatinine Ratio Random Glucose Serum Osmolality Calcium Magnesium Total Bilirubin Direct Bilirubin Indirect Bilirubin AST ALT Alkaline Phosphatase Creatine Kinase CK-MB (CK-2) CK-MB (CK-2) % Troponin I 0.02 B-Natriuretic Peptide Serum Total Protein Albumin Urine Color Urine Appearance Urine pH Ur Specific [place] Urine Protein Urine Glucose (UA) Urine Ketones Urine Blood Urine Nitrite Urine Bilirubin Urine Urobilinogen Ur Leukocyte Esterase Urine RBC Urine WBC Ur Epithelial Cells Urine Bacteria Digoxin - EKG/XRAY/CT EKG: Atrial, Fibrillation Comments: HR-155 RVR XRAY: chest - mild left basilar subsegment atelectasis Departure - Departure Clinical Impression: Atrial fibrillation with rapid ventricular response, Sensation of chest pressure, Hypomagnesemia Time of Disposition: 18:31 Disposition: Discharge to Home or Self Care Condition: Fair Departure Forms: ED Discharge - Pt. Copy, Patient Portal Self Enrollment Instructions: Atrial Fibrillation, DI for Atrial Fibrillation Referrals: Ortiz Begum MD [Primary Care Provider] - 1-2 Weeks Home Medications: Ambulatory Orders ALPRAZolam [Xanax] 0.25 mg PO TID PRN 06/18/17 Atorvastatin Calcium [Lipitor] 20 mg PO BEDTIME 06/18/17 Gabapentin 300 mg PO TID 06/18/17 Omeprazole 20 mg PO DAILY 06/18/17 Oxybutynin Chloride 5 mg PO DAILY 06/18/17 metFORMIN XR [Glucophage Xr] 500 mg PO TID 06/18/17 Clopidogrel Bisulfate [Plavix] 75 mg PO DAILY 06/20/17 Digoxin [Lanoxin Tab] 0.125 mg PO DAILY@1200 06/20/17 Atenolol 100 mg PO DAILY 01/13/18 HYDROcodone 7.5MG/APAP 325MG [[place] 7.5/325] 1 tab PO TID 01/13/18 Miglitol [Glyset] 25 mg PO BID 01/13/18 Potassium Chloride [K-Tab] 10 meq PO DAILY 01/13/18 Triamterene & Hydrochlorothiaz [Triamterene/Hydrochloroth 75-50 mg] 1 tab PO DAILY 01/13/18 Additional Instructions: Return to ER as needed;follow up with spout liner helper Dr. Mayen call for your appointment;Mag-Ox(otc) one capsule daily;Vit.D 2000 IU one tablet daily,Take one extra pill of digoxin tomorrow
[2018-01-13] MEDS ORDERED: diltiaZEM HCL TAB 30 MG TAB PO ONE (16:09)
[2018-01-13] MEDS ORDERED: MAGNESIUM SULFATE PREMIX 2GM 2 GM in PREMIX BAG 1 BAG IVPB ONE (16:29)
[2018-01-13] MEDS ORDERED: MAGNESIUM SULFATE PREMIX 2GM 50 ML IVPB ONE (16:32)
--- NOTE | 2018-01-13 16:32 | RAD ---
Procedure: XR CHEST 1 VIEW Exam Date: 01/13/2018 3:47 PM CDT Ordering Provider: Ashwin Willams Clinical Indication: sob Comparison: None Findings: Mild left basilar subsegmental atelectasis. No pleural effusion or pneumothorax. Heart size is within normal limits. No acute osseous abnormality. Impression: Mild left basilar subsegmental atelectasis. Electronically signed by: Kofi Callejas MD 01/13/2018 4:31 PM CDT
[2018-01-13 18:40] VITALS: BP 125/61; O2SAT 95
== END 2018-01-13 18:39 | disposition home or self-care (01) ==
LOC: ER 15:28
DX: I48.91 Unspecified atrial fibrillation (principal); R07.89 Other chest pain; E83.42 Hypomagnesemia; I25.2 Old myocardial infarction; I10 Essential (primary) hypertension; E11.9 Type 2 diabetes mellitus without complications; K21.9 Gastro-esophageal reflux disease without esophagitis; Z79.02 Long term (current) use of antithrombotics/antiplatelets
CPT/HCPCS: 36415; 71045; 80048; 80076; 80162; 81001; 82550; 82553; 83880; 84484; 85025; 85610; 85730; 93005; J3475; J7120

== ENCOUNTER 2018-06-04 13:07 | Emergency (ER) | payer MEDICARE ==
--- NOTE | 2018-06-04 13:39 | ED.PDOC ---
History of Present Illness - General Chief Complaint: Cardiovascular Problem Stated Complaint: Chest pressure and SOB Time Seen by Provider: 06/04/18 13:32 Source: patient - History of Present Illness Initial Comments: SHE VOICES THAT SHE FEELS PALPITATIONS AND MAKES HER FEEL WEIRD. DENIES ANY CHEST PAIN. SHE HAS A HX OF CAD AND ATRIAL FIB, ON DIGOXIN AND PLAVIX. ABOUT ONE YEAR AGO SHE HAD A CORONARY STENT PLACED AND COMPLICATED WITH A LUMBAR AND THORACIC EPIDURAL BLEED CAUSING SCIATIC NERVE COMPRESSION. SHE ALSO SUFFERS OF DM, CHOLESTEROL AND A LUMBAR COMPRESSION FRACTURE. SHE HAS PAIN MANAGEMENT BY DR. CLANCY, HAS DR. FLOWERS DATA SUPPORT SPECIALIST AND DR. MARIE NEUROSURGEON. Allergies/Adverse Reactions: Allergies NO KNOWN ALLERGY Allergy (Verified 06/04/18 14:26) Home Medications: Ambulatory Orders ALPRAZolam [Xanax] 0.25 mg PO TID PRN 06/18/17 Atorvastatin Calcium [Lipitor] 20 mg PO BEDTIME 06/18/17 Gabapentin 300 mg PO TID 06/18/17 Omeprazole 20 mg PO DAILY 06/18/17 Oxybutynin Chloride 5 mg PO DAILY 06/18/17 metFORMIN XR [Glucophage Xr] 500 mg PO TID 06/18/17 Clopidogrel Bisulfate [Plavix] 75 mg PO DAILY 06/20/17 Digoxin [Lanoxin Tab] 0.125 mg PO DAILY@1200 06/20/17 Atenolol 100 mg PO DAILY 01/13/18 HYDROcodone 7.5MG/APAP 325MG [[place] 7.5/325] 1 tab PO TID 01/13/18 Miglitol [Glyset] 25 mg PO BID 01/13/18 Potassium Chloride [K-Tab] 10 meq PO DAILY 01/13/18 Triamterene & Hydrochlorothiaz [Triamterene/Hydrochloroth 75-50 mg] 1 tab PO DAILY 01/13/18 Review of Systems - Review of Systems Constitutional: States: no symptoms reported EENTM: States: no symptoms reported Respiratory: States: no symptoms reported Cardiology: States: palpitations Gastrointestinal/Abdominal: States: no symptoms reported Genitourinary: States: no symptoms reported Musculoskeletal: States: no symptoms reported Skin: States: no symptoms reported Neurological: States: no symptoms reported Endocrine: States: no symptoms reported Hematologic/Lymphatic: States: no symptoms reported Past Medical History (General) - Patient Medical History Hx Seizures: No Hx Stroke: No Hx Dementia: No Hx Asthma: No Hx of COPD: No Hx Cardiac Disorders: Yes - a.fib recent diagnosis,[place] Hx Congestive Heart Failure: No Hx Pacemaker: No Hx Hypertension: Yes Hx Thyroid Disease: No Hx Diabetes: Yes Hx Gastroesophageal Reflux: Yes Hx Renal Disease: No Hx Cancer: No Hx of HIV: No Hx Hepatitis C: No Hx MRSA: No - Vaccination History Hx Tetanus, Diphtheria Vaccination: No Hx Influenza Vaccination: Yes Hx Pneumococcal Vaccination: Yes - Social History Hx Tobacco Use: Yes Hx Chewing Tobacco Use: No Hx Alcohol Use: No Hx Substance Use: No Hx Depression: No Hx Physical Abuse: No Hx Emotional Abuse: No Hx Suspected Abuse: No - Female History Patient : No Family Medical History - Family History Mother Family History: No Known Living Status: Hx Family Hypertension: Yes Physical Exam - Physical Exam General Appearance: Alert, Well Developed, Well Groomed, Well Hydrated, Well Nourished Eyes, Ears, Nose, Throat Exam: PERRL/EOMI, normal ENT inspection, TMs normal Neck: non-tender, full range of motion, supple Respiratory: chest non-tender, lungs clear, normal breath sounds Cardiovascular/Chest: tachycardia, irregularly irregular Peripheral Pulses: radial,right: 2+, radial,left: 2+ Gastrointestinal/Abdominal: normal bowel sounds, non tender, soft, no organomegaly, no pulsatile mass Extremity: normal range of motion, non-tender, normal inspection, no pedal edema , no calf tenderness Neurologic: no motor/sensory deficits, alert, normal mood/affect, oriented x 3 Skin Exam: normal color Lymphatic: no adenopathy Progress - Progress Progress: 06/04/18 15:45 AFTER THE CARDIZEM, SHE CONTINUES IN SINUS RHYTHM BUT HER BP IS 72 SYSTOLIC, EVEN AFTER 500 CC OF NS. WILL ADMINISTER ANOTHER LITER OF SALINE. 06/04/18 16:54 THE PATIENT FEELS MUCH BETTER, SHE HAS MAINTAINED HERSELF ON A SINUS RHYTHM AND HER BP IS 99 SYSTOLIC. SHE WILL BE DISCHARGED HOME. - Results/Orders Results/Orders: AFTER 15 MG OF CARDIZEM THE HR IS BETTER AT 75 BUT THE BP HAS DROPPED TO 60 SYSTOLIC. WILL NS 500 CC BOLUS. EKG: HR OF 154, QRS OF 76, QTC OF 474, AXES OF -5 DEGREES. IMPRESSION: ATRIAL FIBRILLATION WITH RVR Departure - Departure Clinical Impression: Atrial fibrillation with RVR Time of Disposition: 16:56 Disposition: Discharge to Home or Self Care Condition: Good Departure Forms: ED Discharge - Pt. Copy, Patient Portal Self Enrollment Instructions: Atrial Fibrillation (DC) Referrals: Ortiz Begum MD [Primary Care Provider] - 1-2 Weeks Home Medications: Ambulatory Orders ALPRAZolam [Xanax] 0.25 mg PO TID PRN 06/18/17 Atorvastatin Calcium [Lipitor] 20 mg PO BEDTIME 06/18/17 Gabapentin 300 mg PO TID 06/18/17 Omeprazole 20 mg PO DAILY 06/18/17 Oxybutynin Chloride 5 mg PO DAILY 06/18/17 metFORMIN XR [Glucophage Xr] 500 mg PO TID 06/18/17 Clopidogrel Bisulfate [Plavix] 75 mg PO DAILY 06/20/17 Digoxin [Lanoxin Tab] 0.125 mg PO DAILY@1200 06/20/17 Atenolol 100 mg PO DAILY 01/13/18 HYDROcodone 7.5MG/APAP 325MG [[place] 7.5/325] 1 tab PO TID 01/13/18 Miglitol [Glyset] 25 mg PO BID 01/13/18 Potassium Chloride [K-Tab] 10 meq PO DAILY 01/13/18 Triamterene & Hydrochlorothiaz [Triamterene/Hydrochloroth 75-50 mg] 1 tab PO DAILY 01/13/18 Additional Instructions: CONTINUE HOME MEDS
--- NOTE | 2018-06-04 14:11 | RAD ---
EXAM DESCRIPTION: Chest,1 View CLINICAL HISTORY: 68 years Female, SOB COMPARISON: January 13, 2018 TECHNIQUE: AP portable chest. FINDINGS: Lungs are clear. No consolidation. Heart normal size. IMPRESSION: Normal. Electronically signed by: Yung Montgomery MD 06/04/2018 2:10 PM CDT
[2018-06-04 14:27] VITALS: TEMP 98
[2018-06-04] MEDS ORDERED: SODIUM CHLORIDE 0.9% 500ML 500 ML IVS ONE (14:34)
[2018-06-04] MEDS ORDERED: SODIUM CHLORIDE 0.9% 1000ML 1,000 ML IVS ONE (15:46)
[2018-06-04 17:06] VITALS: BP 96/63; O2SAT 97
== END 2018-06-04 17:06 | disposition home or self-care (01) ==
LOC: ER 13:07
DX: I48.91 Unspecified atrial fibrillation (principal); R00.0 Tachycardia, unspecified; E11.9 Type 2 diabetes mellitus without complications; I10 Essential (primary) hypertension; K21.9 Gastro-esophageal reflux disease without esophagitis; I25.2 Old myocardial infarction; Z87.891 Personal history of nicotine dependence; Z79.84 Long term (current) use of oral hypoglycemic drugs; Z79.899 Other long term (current) drug therapy
CPT/HCPCS: 36415; 71045; 80053; 80162; 83880; 84484; 85025; 85610; 85730; 93005; J7030; J7040

== ENCOUNTER → 2018-10-07 | Outpatient (CLI) | payer MEDICARE | LOC: LAB.O 15:14 | PROVIDERS: ATTEND Obstetrics & Gynecology | DX: I10 Essential (primary) hypertension (principal); I25.10 Atherosclerotic heart disease of native coronary artery without angina pectoris; E11.65 Type 2 diabetes mellitus with hyperglycemia; R60.0 Localized edema ==

== ENCOUNTER 2018-12-20 03:47 | Emergency (ER) | payer MEDICARE ==
[2018-12-20] MEDS ORDERED: NITROGLYCERIN 0.4 MG 25 EA TAB SL ONE (03:52)
[2018-12-20] MEDS ORDERED: ASPIRIN TABLET 325 MG TAB PO ONE (03:52)
[2018-12-20] MEDS ORDERED: SODIUM CHLORIDE 0.9% (FLUSH) 10 ML SYG IV PRN (03:52)
--- NOTE | 2018-12-20 04:10 | RAD ---
CLINICAL HISTORY: chest [pains COMPARISON: June 04, 2018. TECHNIQUE: XR CHEST 1 VIEW 12/20/2018 3:52 AM CLIENT LEADER FINDINGS: The heart is normal in size. Lungs are clear without consolidation, atelectasis, mass or edema. There is no pleural effusion. There is no pneumothorax. There are no acute osseous findings. IMPRESSION: Clear lungs. Electronically signed by: Yariel Porter MD 12/20/2018 4:07 AM CLIENT LEADER
--- NOTE | 2018-12-20 04:27 | ED.PDOC ---
History of Present Illness - General Chief Complaint: Cardiovascular Problem Stated Complaint: chest pain, heaviness Time Seen by Provider: 12/20/18 04:08 Source: patient Exam Limitations: no limitations - History of Present Illness Initial Comments: Patient presents with chest pain for two hours. It is intermittent, midsternal, nonradiating, no exacerbating nor alleviating factors. She had a previous episode two years ago that turned out to be atrial fibrillation that resulted from an AMI. She has no associated symptoms. She is s/p PTCA x one two years ago. Currently is also having problems with her back and is seeing a neurosurgeon. No other complaints. Timing/Duration: 1-3 hours Severity: mild Location: substernal Activities at Onset: none Prior Chest Pain/Cardiac Workup: heart attack Improving Factors: nothing Worsening Factors: nothing Nitro Today/Relief: no nitro taken today Aspirin Treatment Today: no aspirin today Associated Symptoms: denies symptoms Allergies/Adverse Reactions: Allergies NO KNOWN ALLERGY Allergy (Verified 06/04/18 14:26) Home Medications: Ambulatory Orders ALPRAZolam [Xanax] 0.25 mg PO TID PRN 06/18/17 Oxybutynin Chloride 5 mg PO DAILY 06/18/17 metFORMIN XR [Glucophage Xr] 500 mg PO TID 06/18/17 Clopidogrel Bisulfate [Plavix] 75 mg PO DAILY 06/20/17 Digoxin [Lanoxin Tab] 0.125 mg PO DAILY@1200 06/20/17 Atenolol 100 mg PO DAILY 01/13/18 Miglitol [Glyset] 25 mg PO BID 01/13/18 Potassium Chloride [K-Tab] 10 meq PO DAILY 01/13/18 Triamterene & Hydrochlorothiaz [Triamterene/Hydrochloroth 75-50 mg] 1 tab PO DAILY 01/13/18 Oxycodone W/ Acetaminophen [Oxycodone/Acetaminophen] 1 tab PO PRN 12/20/18 Ranitidine HCl [Ranitidine Hydrochloride] 150 mg PO DAILY 12/20/18 Rosuvastatin Calcium 10 mg PO DAILY 12/20/18 SITagliptin [Januvia] 50 mg PO DAILY 12/20/18 Review of Systems - Review of Systems Constitutional: States: no symptoms reported EENTM: States: no symptoms reported Respiratory: States: no symptoms reported Cardiology: States: see HPI Gastrointestinal/Abdominal: States: no symptoms reported Genitourinary: States: no symptoms reported Musculoskeletal: States: no symptoms reported Skin: States: no symptoms reported Neurological: States: no symptoms reported Endocrine: States: no symptoms reported Hematologic/Lymphatic: States: no symptoms reported Past Medical History (General) - Patient Medical History Hx Seizures: No Hx Stroke: No Hx Dementia: No Hx Asthma: No Hx of COPD: No Hx Cardiac Disorders: Yes - a.fib recent diagnosis,[place] Hx Congestive Heart Failure: No Hx Pacemaker: No Hx Hypertension: Yes Hx Thyroid Disease: No Hx Diabetes: Yes Hx Gastroesophageal Reflux: Yes Hx Renal Disease: No Hx Cancer: No Hx of HIV: No Hx Hepatitis C: No Hx MRSA: No Surgical History: appendectomy, Hysterectomy - Vaccination History Hx Tetanus, Diphtheria Vaccination: Yes Hx Influenza Vaccination: Yes Hx Pneumococcal Vaccination: Yes - Social History Hx Tobacco Use: Yes Hx Chewing Tobacco Use: No Hx Alcohol Use: No Hx Substance Use: No Hx Depression: No Hx Physical Abuse: No Hx Emotional Abuse: No Hx Suspected Abuse: No - Female History Patient : No Family Medical History - Family History Mother Family History: No Known Living Status: Hx Family Hypertension: Yes Physical Exam - Physical Exam General Appearance: Alert Eyes, Ears, Nose, Throat Exam: normal ENT inspection Neck: non-tender, full range of motion, supple Respiratory: lungs clear, normal breath sounds Cardiovascular/Chest: normal peripheral pulses, regular rate, rhythm, no edema Gastrointestinal/Abdominal: normal bowel sounds, non tender, soft Extremity: normal range of motion, non-tender, normal inspection Neurologic: no motor/sensory deficits, alert, normal mood/affect, oriented x 3 Skin Exam: normal color Lymphatic: no adenopathy Progress - Progress Progress: 12/20/18 06:53 Laboratory Tests 12/20/18 12/20/18 12/20/18 03:52 04:09 05:55 WBC 8.2 RBC 4.16 L Hgb 11.3 L Hct 34.3 L MCV 82.5 MCH 27.2 MCHC 33.0 RDW 16.6 H Plt Count 216 MPV 8.2 Absolute Neuts (auto) 6.10 Absolute Lymphs (auto) 1.30 Absolute Monos (auto) 0.60 Absolute Eos (auto) 0.20 Absolute Basos (auto) 0.00 Neutrophils % 74.2 Lymphocytes % 15.8 L Monocytes % 7.6 Eosinophils % 2.1 Basophils % 0.3 PT 10.0 INR 1.00 PTT (SP) 24.5 Sodium 137 Potassium 4.1 Chloride 101 Carbon Dioxide 22 Anion Gap 18.1 H BUN 25 H Creatinine 0.93 BUN/Creatinine Ratio 26.9 H Random Glucose 159 H Serum Osmolality 281.6 Calcium 8.9 Magnesium 1.6 L Creatine Kinase 90 CK-MB (CK-2) 2.7 CK-MB (CK-2) % 3.00 Troponin I < 0.02 < 0.02 B-Natriuretic Peptide 14.4 Digoxin 0.4 L EKG showed NSR with no ST changes, no T wave inversions, no LBBB. Troponins x two were negative. Patient remained asymptomatic in the E.D. This does not appear cardiac in nature. However, follow up instructions were given. Care instructions given. E.R. warnings given. Questions were elicited and answered. Patient voiced understanding and agreement with the plan Departure - Departure Clinical Impression: Chest pain Disposition: Discharge to Home or Self Care Condition: Good Departure Forms: ED Discharge - Pt. Copy, Patient Portal Self Enrollment Instructions: DI for Chest Pain Diet: resume usual diet Activity: increase activity as tolerated Referrals: Ortiz Begum MD [Primary Care Provider] - 1-2 Weeks Home Medications: Ambulatory Orders ALPRAZolam [Xanax] 0.25 mg PO TID PRN 06/18/17 Oxybutynin Chloride 5 mg PO DAILY 06/18/17 metFORMIN XR [Glucophage Xr] 500 mg PO TID 06/18/17 Clopidogrel Bisulfate [Plavix] 75 mg PO DAILY 06/20/17 Digoxin [Lanoxin Tab] 0.125 mg PO DAILY@1200 06/20/17 Atenolol 100 mg PO DAILY 01/13/18 Miglitol [Glyset] 25 mg PO BID 01/13/18 Potassium Chloride [K-Tab] 10 meq PO DAILY 01/13/18 Triamterene & Hydrochlorothiaz [Triamterene/Hydrochloroth 75-50 mg] 1 tab PO DAILY 01/13/18 Oxycodone W/ Acetaminophen [Oxycodone/Acetaminophen] 1 tab PO PRN 12/20/18 Ranitidine HCl [Ranitidine Hydrochloride] 150 mg PO DAILY 12/20/18 Rosuvastatin Calcium 10 mg PO DAILY 12/20/18 SITagliptin [Januvia] 50 mg PO DAILY 12/20/18 Additional Instructions: See your senior mechanical estimator for adjustment of your Digoxin and further evaluation. Return to the E.R. if pain recurs or for new symptoms. Critical Care Note - Critical Care Note Total Time (mins): 35
[2018-12-20] MEDS ORDERED: NITROGLYCERIN 2% 1 GM UD TOP ONE (04:31)
[2018-12-20 07:09] VITALS: BP 122/75; TEMP 97.5; O2SAT 98
== END 2018-12-20 07:13 | disposition home or self-care (01) ==
LOC: ER 03:47
DX: R07.2 Precordial pain (principal); I10 Essential (primary) hypertension; E11.9 Type 2 diabetes mellitus without complications; K21.9 Gastro-esophageal reflux disease without esophagitis; I48.91 Unspecified atrial fibrillation; I25.2 Old myocardial infarction; Z87.891 Personal history of nicotine dependence; Z79.84 Long term (current) use of oral hypoglycemic drugs; Z79.899 Other long term (current) drug therapy

== ENCOUNTER 2019-02-05 01:55 | Emergency (ER) | payer MEDICARE ==
[2019-02-05] MEDS ORDERED: PROMETHAZINE HCL INJ 25 MG in SODIUM CHLORIDE 0.9% 50ML 50 ML IM ONE (02:08)
[2019-02-05] MEDS ORDERED: PROMETHAZINE HCL INJ 25 MG/ML VIAL ONE (02:08)
[2019-02-05] MEDS ORDERED: PROMETHAZINE HCL INJ 25 MG/ML VIAL IM ONE (02:26)
--- NOTE | 2019-02-05 02:37 | RAD ---
EXAM DESCRIPTION: Abdomen Series CLINICAL HISTORY: 68 years Female, nv acute COMPARISON: None. FINDINGS: No consolidation. No pneumothorax. No significant pleural effusion. Cardiac silhouette appears normal in size. Aortic tortuosity is demonstrated. Bowel gas pattern appears unremarkable. No evidence of bowel dilatation to suggest obstruction. No obvious free air. Mild scattered fecal material in the colon and rectum demonstrated. Degenerative changes of the spine noted. IMPRESSION: 1. No acute findings within the chest. 2. Unremarkable bowel gas pattern. Electronically signed by: Antolin Berry MD 02/05/2019 2:34 AM CDT
[2019-02-05] MEDS ORDERED: ONDANSETRON ODT 8 MG TAB SL ONE (05:01)
[2019-02-05] MEDS ORDERED: MAGNESIUM OXIDE 400 MG TAB PO ONE (05:02)
--- NOTE | 2019-02-05 05:11 | ED.PDOC ---
History of Present Illness - General Chief Complaint: GI Problem Stated Complaint: nausea and vomiting Time Seen by Provider: 02/05/19 01:58 Source: patient Exam Limitations: no limitations - History of Present Illness Initial Comments: the patient is a 68-year-old female presenting with acute onset nausea and vomiting approximately 20 minutes prior to arrival. She did have some nausea about 4 hours ago. No vomiting at that time. No abdominal pain. No diarrhea. No fever. No chest pain. No shortness of breath. No syncope or near syncope. Just nausea and vomiting. The patient is alert pleasant and cooperative after she receives her nausea medications. Timing/Duration: 1/2 hour Severity: severe Improving Factors: medication Worsening Factors: nothing Associated Symptoms: loss of appetite, malaise, nausea/vomiting Allergies/Adverse Reactions: Allergies NO KNOWN ALLERGY Allergy (Verified 06/04/18 14:26) Home Medications: Ambulatory Orders Oxybutynin Chloride 5 mg PO DAILY 06/18/17 metFORMIN XR [Glucophage Xr] 500 mg PO TID 06/18/17 Clopidogrel Bisulfate [Plavix] 75 mg PO DAILY 06/20/17 Digoxin [Lanoxin Tab] 0.125 mg PO DAILY@1200 06/20/17 Atenolol 100 mg PO DAILY 01/13/18 Miglitol [Glyset] 25 mg PO BID 01/13/18 Potassium Chloride [K-Tab] 10 meq PO DAILY 01/13/18 Triamterene & Hydrochlorothiaz [Triamterene/Hydrochloroth 75-50 mg] 1 tab PO DAILY 01/13/18 Ranitidine HCl [Ranitidine Hydrochloride] 150 mg PO DAILY 12/20/18 Rosuvastatin Calcium 10 mg PO DAILY 12/20/18 SITagliptin [Januvia] 50 mg PO DAILY 12/20/18 Ondansetron [Ondansetron Odt] 4 mg PO Q8HR PRN #5 tab 02/05/19 Sucralfate Tab [Carafate Tab] 1 gm PO QID #60 tab 02/05/19 Review of Systems - Review of Systems Constitutional: States: malaise EENTM: States: no symptoms reported Respiratory: States: no symptoms reported Cardiology: States: no symptoms reported Gastrointestinal/Abdominal: States: nausea, vomiting - no blood and no bile. Genitourinary: States: no symptoms reported Musculoskeletal: States: no symptoms reported Skin: States: no symptoms reported Neurological: States: no symptoms reported Endocrine: States: no symptoms reported All other Systems: No Change from Baseline Past Medical History (General) - Patient Medical History Hx Seizures: No Hx Stroke: No Hx Dementia: No Hx Asthma: No Hx of COPD: No Hx Cardiac Disorders: Yes - a.fib recent diagnosis,[place] Hx Congestive Heart Failure: No Hx Pacemaker: No Hx Hypertension: Yes Hx Thyroid Disease: No Hx Diabetes: Yes Hx Gastroesophageal Reflux: Yes Hx Renal Disease: No Hx Cancer: No Hx of HIV: No Hx Hepatitis C: No Hx MRSA: No Surgical History: appendectomy, Hysterectomy, other - Vaccination History Hx Tetanus, Diphtheria Vaccination: Yes Hx Influenza Vaccination: Yes Hx Pneumococcal Vaccination: Yes - Social History Hx Tobacco Use: Yes Hx Chewing Tobacco Use: No Hx Alcohol Use: No Hx Substance Use: No Hx Depression: No Hx Physical Abuse: No Hx Emotional Abuse: No Hx Suspected Abuse: No - Female History Patient : No Family Medical History - Family History Mother Family History: No Known Living Status: Hx Family Hypertension: Yes Physical Exam - Physical Exam General Appearance: Alert, Comfortable, No apparent distress Eye Exam: bilateral normal Ears, Nose, Throat: hearing grossly normal, normal ENT inspection, normal pharynx Neck: full range of motion, supple Respiratory: lungs clear, normal breath sounds, no respiratory distress, no accessory muscle use Cardiovascular/Chest: normal peripheral pulses, regular rate, rhythm - borderli ne tachycardia at times, no edema Peripheral Pulses: radial,right: 2+, radial,left: 2+ Gastrointestinal/Abdominal: non tender - no rebound or peritoneal signs. No palpable mass. 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 The patient has responded well to nausea medications. She has been able to tolerate liquids. No abdominal pain. No chest pain or shortness of breath. Vital signs are stable. Diagnosis will be acute gastroenteritis. The patient will be written for Zofran for as needed use along with Carafate 4 times daily for the next 2 weeks. Keep well hydrated. Follow up with primary care doctor towards the end of this week. ER warnings we re given. The patient has been monitored more than 3 hours. 02/05/19 05:17 - Results/Orders Results/Orders: Vital Signs - 24 hr 02/05/19 02/05/19 02/05/19 02:05 04:02 04:56 Temperature 98 F Pulse Rate [ 114 H 80 82 left] Respiratory 20 16 Rate Blood Pressure 169/105 122/75 141/94 [left] O2 Sat by Pulse 97 95 94 L Oximetry acute abdominal series shows no acute pathology. Laboratory Results - last 24 hr 02/05/19 02/05/19 02/05/19 02:28 02:28 02:28 WBC 11.6 H RBC 4.50 Hgb 12.1 Hct 37.3 MCV 82.9 MCH 26.8 L MCHC 32.4 L RDW 15.9 H Plt Count 270 MPV 8.0 Absolute Neuts (auto) 9.50 H Absolute Lymphs (auto) 1.00 Absolute Monos (auto) 0.80 Absolute Eos (auto) 0.20 Absolute Basos (auto) 0.10 Neutrophils % 82.2 H Lymphocytes % 8.8 L Monocytes % 7.0 Eosinophils % 1.5 Basophils % 0.5 Sodium 140 Potassium 3.7 Chloride 101 Carbon Dioxide 23 Anion Gap 19.7 H BUN 30 H Creatinine 0.98 BUN/Creatinine Ratio 30.6 H POC Glucose 150 H Random Glucose 158 H Serum Osmolality 288.9 Calcium 9.4 Magnesium 1.6 L Total Bilirubin 0.5 AST 38 ALT 32 Alkaline Phosphatase 49 Creatine Kinase 93 CK-MB (CK-2) 3.7 CK-MB (CK-2) % Not Reportable Troponin I < 0.02 Serum Total Protein 8.1 Albumin 4.5 Globulin 3.6 H Albumin/Globulin Ratio 1.3 Amylase 122 H Lipase 36 Departure - Departure Clinical Impression: Gastroenteritis Disposition: Discharge to Home or Self Care Condition: Fair Departure Forms: ED Discharge - Pt. Copy, Patient Portal Self Enrollment Instructions: Viral Gastroenteritis, Adult (DC) Diet: bland diet Activity: increase activity as tolerated Referrals: Ortiz Begum MD [Primary Care Provider] - 1-2 Weeks Prescriptions: Ondansetron [Ondansetron Odt] 4 mg PO Q8HR PRN #5 tab PRN Reason: Nausea/Vomiting Sucralfate Tab [Carafate Tab] 1 gm PO QID #60 tab Home Medications: Ambulatory Orders Oxybutynin Chloride 5 mg PO DAILY 06/18/17 metFORMIN XR [Glucophage Xr] 500 mg PO TID 06/18/17 Clopidogrel Bisulfate [Plavix] 75 mg PO DAILY 06/20/17 Digoxin [Lanoxin Tab] 0.125 mg PO DAILY@1200 06/20/17 Atenolol 100 mg PO DAILY 01/13/18 Miglitol [Glyset] 25 mg PO BID 01/13/18 Potassium Chloride [K-Tab] 10 meq PO DAILY 01/13/18 Triamterene & Hydrochlorothiaz [Triamterene/Hydrochloroth 75-50 mg] 1 tab PO DAILY 01/13/18 Ranitidine HCl [Ranitidine Hydrochloride] 150 mg PO DAILY 12/20/18 Rosuvastatin Calcium 10 mg PO DAILY 12/20/18 SITagliptin [Januvia] 50 mg PO DAILY 12/20/18 Ondansetron [Ondansetron Odt] 4 mg PO Q8HR PRN #5 tab 02/05/19 Sucralfate Tab [Carafate Tab] 1 gm PO QID #60 tab 02/05/19 Additional Instructions: he patient's a 68-year-old female presenting with acute onset isolated nausea and vomiting. The patient has responded well to nausea medications. She has been able to tolerate liquids. Vital signs are stable. Diagnosis will be acute gastroenteritis. The patient will be written for Zofran for as needed use along with Carafate 4 times daily for the next 2 weeks. Keep well hydrated. Follow up with primary care doctor towards the end of this week. ER warnings were given. The patient has been monitored more than 3 hours. I would also recommend holding the metformin and the triamterene hydrochlorothiazide for a few days.
[2019-02-05 05:33] VITALS: BP 131/93; TEMP 97.9; O2SAT 96
== END 2019-02-05 05:33 | disposition home or self-care (01) ==
LOC: ER 01:55
DX: K52.9 Noninfective gastroenteritis and colitis, unspecified (principal); I48.91 Unspecified atrial fibrillation; I25.2 Old myocardial infarction; I10 Essential (primary) hypertension; E11.9 Type 2 diabetes mellitus without complications; K21.9 Gastro-esophageal reflux disease without esophagitis; Z87.891 Personal history of nicotine dependence; Z90.49 Acquired absence of other specified parts of digestive tract; Z79.899 Other long term (current) drug therapy; Z79.84 Long term (current) use of oral hypoglycemic drugs
CPT/HCPCS: 36415; 74019; 80053; 82150; 82550; 82553; 82948; 83690; 83735; 84484; 85025; J2550

== ENCOUNTER 2019-07-01 02:12 | Emergency (ER) | payer MEDICARE ==
--- NOTE | 2019-07-01 02:26 | ED.PDOC ---
History of Present Illness - General Chief Complaint: Diabetic Complaint Stated Complaint: Low blood sugar Time Seen by Provider: 07/01/19 02:19 Additional Information: patient is a 69-year-old female who presents to the ED with chief complaint of low blood sugar. Patient takes oral hypoglycemic medications only, she is not on insulin, and she indicates that she rarely has problems with her blood sugar. Patient indicates she began to feel weak and shaky this evening and took her blood sugar at home and it was 58. Patient did not eat or drink anything after that to address the low blood sugar but she does indicate she had been stacking on crackers and cheese beforehand. That she takes all of her medications as prescribed. Patient denies any chest pain shortness of breath fever chills nausea vomiting or any other complaints. - History of Present Illness Allergies/Adverse Reactions: Allergies NO KNOWN ALLERGY Allergy (Verified 06/04/18 14:26) Home Medications: Ambulatory Orders Oxybutynin Chloride 5 mg PO DAILY 06/18/17 metFORMIN XR [Glucophage Xr] 500 mg PO TID 06/18/17 Clopidogrel Bisulfate [Plavix] 75 mg PO DAILY 06/20/17 Digoxin [Lanoxin Tab] 0.125 mg PO DAILY@1200 06/20/17 Atenolol 100 mg PO DAILY 01/13/18 Miglitol [Glyset] 25 mg PO BID 01/13/18 Potassium Chloride [K-Tab] 10 meq PO DAILY 01/13/18 Triamterene & Hydrochlorothiaz [Triamterene/Hydrochloroth 75-50 mg] 1 tab PO DAILY 01/13/18 Ranitidine HCl [Ranitidine Hydrochloride] 150 mg PO DAILY 12/20/18 Rosuvastatin Calcium 10 mg PO DAILY 12/20/18 SITagliptin [Januvia] 50 mg PO DAILY 12/20/18 Ondansetron [Ondansetron Odt] 4 mg PO Q8HR PRN #5 tab 02/05/19 Sucralfate Tab [Carafate Tab] 1 gm PO QID #60 tab 02/05/19 Ciprofloxacin HCl [Cipro] 500 mg PO BID #20 tab 07/01/19 Review of Systems - Review of Systems Constitutional: Denies: chills, diaphoresis, fever EENTM: States: no symptoms reported. Denies: blurred vision, double vision Respiratory: States: no symptoms reported. Denies: cough, short of breath Cardiology: States: no symptoms reported. Denies: chest pain, palpitations Gastrointestinal/Abdominal: States: no symptoms reported. Denies: abdominal pain, nausea, vomiting Genitourinary: States: no symptoms reported. Denies: dysuria Musculoskeletal: States: no symptoms reported Skin: States: no symptoms reported Neurological: States: no symptoms reported. Denies: headache, numbness, paresthesia Endocrine: States: no symptoms reported Hematologic/Lymphatic: States: no symptoms reported All other Systems: Reviewed and Negative Past Medical History (General) - Patient Medical History Hx Seizures: No Hx Stroke: No Hx Dementia: No Hx Asthma: No Hx of COPD: No Hx Cardiac Disorders: Yes - a.fib recent diagnosis,[place] Hx Congestive Heart Failure: No Hx Pacemaker: No Hx Hypertension: Yes Hx Thyroid Disease: No Hx Diabetes: Yes Hx Gastroesophageal Reflux: Yes Hx Renal Disease: No Hx Cancer: No Hx of HIV: No Hx Hepatitis C: No Hx MRSA: No - Vaccination History Hx Tetanus, Diphtheria Vaccination: Yes Hx Influenza Vaccination: Yes Hx Pneumococcal Vaccination: Yes - Social History Hx Tobacco Use: Yes Hx Chewing Tobacco Use: No Hx Alcohol Use: No Hx Substance Use: No Hx Depression: No Hx Physical Abuse: No Hx Emotional Abuse: No Hx Suspected Abuse: No - Female History Patient : No Family Medical History - Family History Mother Family History: No Known Living Status: Hx Family Hypertension: Yes Physical Exam - Physical Exam General Appearance: Alert, Comfortable, No apparent distress Ears, Nose, Throat: normal ENT inspection, normal pharynx Neck: non-tender, full range of motion, supple Respiratory: chest non-tender, lungs clear, normal breath sounds, no respiratory distress Cardiovascular/Chest: normal peripheral pulses, regular rate, rhythm Gastrointestinal/Abdominal: normal bowel sounds, non tender, soft Back Exam: normal inspection Extremity: normal range of motion, no pedal edema, normal capillary refill 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, no motor/sensory deficits, alert, normal mood/affect, oriented x 3 Progress - Progress Progress: 07/01/19 07:14 patient is feeling well and her blood sugars have slowly risen throughout her ED course and are stable in the low 200s.patient offered observation admission for continued watching her blood sugars but she declines saying that she feels well and will check her blood sugars regularly.patient's UA is suggestive of UTI and urine has been sent for culture and I will discharge her with by mouth antibiotics.Vital signs stable, patient NAD and looks clinically well and is safe for discharge with outpatient follow-up. Follow-up instructions, discharge instructions and return to ED precautions discussed with patient, Patient voices understanding and willingness to comply with instructions. All laboratory and radiographic results have been discussed with the patient, and all questions answered.. Patient happy with plan. Departure - Departure Clinical Impression: Hypoglycemia, Diabetes mellitus, UTI (urinary tract infection) Time of Disposition: 07:17 Disposition: Discharge to Home or Self Care Departure Forms: ED Discharge - Pt. Copy, Patient Portal Self Enrollment Instructions: DI for Diabetes Type 2, Urinary Tract Infections in Adults Diet: diabetic diet Activity: increase activity as tolerated Referrals: Ortiz Begum MD [Primary Care Provider] - 1-5 Days Prescriptions: Ciprofloxacin HCl [Cipro] 500 mg PO BID #20 tab Home Medications: Ambulatory Orders Oxybutynin Chloride 5 mg PO DAILY 06/18/17 metFORMIN XR [Glucophage Xr] 500 mg PO TID 06/18/17 Clopidogrel Bisulfate [Plavix] 75 mg PO DAILY 06/20/17 Digoxin [Lanoxin Tab] 0.125 mg PO DAILY@1200 06/20/17 Atenolol 100 mg PO DAILY 01/13/18 Miglitol [Glyset] 25 mg PO BID 01/13/18 Potassium Chloride [K-Tab] 10 meq PO DAILY 01/13/18 Triamterene & Hydrochlorothiaz [Triamterene/Hydrochloroth 75-50 mg] 1 tab PO DAILY 01/13/18 Ranitidine HCl [Ranitidine Hydrochloride] 150 mg PO DAILY 12/20/18 Rosuvastatin Calcium 10 mg PO DAILY 12/20/18 SITagliptin [Januvia] 50 mg PO DAILY 12/20/18 Ondansetron [Ondansetron Odt] 4 mg PO Q8HR PRN #5 tab 02/05/19 Sucralfate Tab [Carafate Tab] 1 gm PO QID #60 tab 02/05/19 Ciprofloxacin HCl [Cipro] 500 mg PO BID #20 tab 07/01/19
[2019-07-01 07:32] VITALS: BP 137/78; TEMP 98; O2SAT 96
== END 2019-07-01 07:31 | disposition home or self-care (01) ==
LOC: ER 02:12
DX: E11.649 Type 2 diabetes mellitus with hypoglycemia without coma (principal); N39.0 Urinary tract infection, site not specified; I48.91 Unspecified atrial fibrillation; I25.2 Old myocardial infarction; I10 Essential (primary) hypertension; K21.9 Gastro-esophageal reflux disease without esophagitis; Z87.891 Personal history of nicotine dependence; Z79.899 Other long term (current) drug therapy; Z79.84 Long term (current) use of oral hypoglycemic drugs; Z79.02 Long term (current) use of antithrombotics/antiplatelets

== ENCOUNTER → 2019-09-01 | Outpatient (CLI) | payer MEDICARE | LOC: LAB.O 09:14 | PROVIDERS: ATTEND Obstetrics & Gynecology | DX: I10 Essential (primary) hypertension (principal); E11.9 Type 2 diabetes mellitus without complications; D64.9 Anemia, unspecified; I25.10 Atherosclerotic heart disease of native coronary artery without angina pectoris ==

== ENCOUNTER → 2020-01-05 | Outpatient (CLI) | payer MEDICARE | DX: E11.9 Type 2 diabetes mellitus without complications (principal); E78.01 Familial hypercholesterolemia; I25.10 Atherosclerotic heart disease of native coronary artery without angina pectoris; I48.11 Longstanding persistent atrial fibrillation; R89.9 Unspecified abnormal finding in specimens from other organs, systems and tissues; Z79.899 Other long term (current) drug therapy ==

== ENCOUNTER 2020-03-23 21:49 | Emergency (ER) | payer MEDICARE ==
[2020-03-23 22:14] VITALS: TEMP 97.9
--- NOTE | 2020-03-23 22:19 | ED.PDOC ---
History of Present Illness - General Chief Complaint: Diabetic Complaint Stated Complaint: Hyperglycemia Time Seen by Provider: 03/23/20 22:03 Source: patient Exam Limitations: no limitations Additional Information: The patient is a 69F with past history of DM, CAD, HTN who presents for elevated glucose. She reports that she is currently taking metformin and glyburide and that her blood glucose is generally well controlled and runs around 150mg/dl at home. She says over the past few days she has been eating several bags of cherries because they are now in season. She has been compliant with her medications. Her blood sugars at home have been in the 200-300 range. She does not have any complaints currently. - History of Present Illness Allergies/Adverse Reactions: Allergies NO KNOWN ALLERGY Allergy (Verified 06/04/18 14:26) Home Medications: Ambulatory Orders Oxybutynin Chloride 5 mg PO DAILY 06/18/17 metFORMIN XR [Glucophage Xr] 500 mg PO TID 06/18/17 Clopidogrel Bisulfate [Plavix] 75 mg PO DAILY 06/20/17 Digoxin [Lanoxin Tab] 0.125 mg PO DAILY@1200 06/20/17 Atenolol 100 mg PO DAILY 01/13/18 Potassium Chloride [K-Tab] 10 meq PO DAILY 01/13/18 Triamterene & Hydrochlorothiaz [Triamterene/Hydrochloroth 75-50 mg] 1 tab PO DAILY 01/13/18 Ranitidine HCl [Ranitidine Hydrochloride] 150 mg PO DAILY 12/20/18 Rosuvastatin Calcium 10 mg PO DAILY 12/20/18 SITagliptin [Januvia] 50 mg PO DAILY 12/20/18 Ondansetron [Ondansetron Odt] 4 mg PO Q8HR PRN #5 tab 02/05/19 Glyburide 2.5 mg PO 03/23/20 Losartan Potassium 50 mg PO 03/23/20 Review of Systems - Review of Systems Constitutional: States: no symptoms reported EENTM: States: no symptoms reported Respiratory: States: no symptoms reported Cardiology: States: no symptoms reported Gastrointestinal/Abdominal: States: no symptoms reported Genitourinary: States: no symptoms reported Musculoskeletal: States: no symptoms reported Skin: States: no symptoms reported Neurological: States: no symptoms reported Endocrine: States: no symptoms reported Hematologic/Lymphatic: States: no symptoms reported All other Systems: No Change from Baseline Past Medical History (General) - Patient Medical History Hx Seizures: No Hx Stroke: No Hx Dementia: No Hx Asthma: No Hx of COPD: No Hx Cardiac Disorders: Yes - [place] X 1, Stint X 1 Hx Congestive Heart Failure: No Hx Pacemaker: No Hx Hypertension: Yes Hx Thyroid Disease: No Hx Diabetes: Yes Hx Gastroesophageal Reflux: No Hx Renal Disease: No Hx Cancer: No Hx of HIV: No Hx Hepatitis C: No Hx MRSA: No Surgical History: appendectomy, Hysterectomy, other - Vaccination History Hx Tetanus, Diphtheria Vaccination: No Hx Influenza Vaccination: No Hx Pneumococcal Vaccination: No - Social History Hx Tobacco Use: Yes Hx Chewing Tobacco Use: No Hx Alcohol Use: No Hx Substance Use: No Hx Substance Use Treatment: No Hx Depression: No Feels Threatened In Home Enviroment: No Feels Threatened In a Relationship: No Hx Physical Abuse: No Hx Emotional Abuse: No Hx Suspected Abuse: No - Female History Patient : No Family Medical History - Family History Mother Family History: No Known Living Status: Hx Family Hypertension: Yes Physical Exam - Physical Exam General Appearance: No apparent distress Ears, Nose, Throat: hearing grossly normal Neck: non-tender, full range of motion Respiratory: no respiratory distress Cardiovascular/Chest: regular rate, rhythm Neurologic: no motor/sensory deficits, alert, normal mood/affect, oriented x 3 Progress - Progress Progress: 03/23/20 23:52 Patient reassessed. Glucose improved to 157. No evidence for DKA and she remains asymptomatic. Discussed dietary modifications and importance of continued home monitoring with PCP follow up. - Results/Orders Results/Orders: 03/23/20 23:15 Sodium Chloride 0.9% 1000ML [Ns 1000 ml] 1,000 ml IVS ONCE Laboratory Results - last 24 hr 03/23/20 03/23/20 03/23/20 22:41 22:41 23:48 WBC 7.3 RBC 4.04 L Hgb 11.2 L Hct 34.2 L MCV 84.6 MCH 27.7 MCHC 32.8 L RDW 16.6 H Plt Count 216 MPV 7.9 Absolute Neuts (auto) 5.20 Absolute Lymphs (auto) 1.30 Absolute Monos (auto) 0.50 Absolute Eos (auto) 0.20 Absolute Basos (auto) 0.10 Neutrophils % 71.6 Lymphocytes % 17.6 L Monocytes % 7.2 Eosinophils % 2.8 Basophils % 0.8 Sodium 135 Potassium 4.7 Chloride 99 L Carbon Dioxide 27 Anion Gap 13.7 BUN 28 H Creatinine 1.30 BUN/Creatinine Ratio 21.5 H POC Glucose 157 H Random Glucose 236 H Serum Osmolality 283.2 Calcium 9.4 Departure - Departure Clinical Impression: Diabetes mellitus with hyperglycemia, without long-term current use of insulin Qualifiers: Diabetes mellitus type: type 2 Qualified Code(s): E11.65 - Type 2 diabetes mellitus with hyperglycemia Time of Disposition: 23:53 Disposition: Discharge to Home or Self Care Condition: Fair Departure Forms: ED Discharge - Pt. Copy, Patient Portal Self Enrollment Instructions: DI for Diabetes Type 2 Diet: diabetic diet Activity: increase activity as tolerated Referrals: Ortiz Begum MD [Primary Care Provider] - 1-2 Weeks Home Medications: Ambulatory Orders Oxybutynin Chloride 5 mg PO DAILY 06/18/17 metFORMIN XR [Glucophage Xr] 500 mg PO TID 06/18/17 Clopidogrel Bisulfate [Plavix] 75 mg PO DAILY 06/20/17 Digoxin [Lanoxin Tab] 0.125 mg PO DAILY@1200 06/20/17 Atenolol 100 mg PO DAILY 01/13/18 Potassium Chloride [K-Tab] 10 meq PO DAILY 01/13/18 Triamterene & Hydrochlorothiaz [Triamterene/Hydrochloroth 75-50 mg] 1 tab PO DAILY 01/13/18 Ranitidine HCl [Ranitidine Hydrochloride] 150 mg PO DAILY 12/20/18 Rosuvastatin Calcium 10 mg PO DAILY 12/20/18 SITagliptin [Januvia] 50 mg PO DAILY 12/20/18 Ondansetron [Ondansetron Odt] 4 mg PO Q8HR PRN #5 tab 02/05/19 Glyburide 2.5 mg PO 03/23/20 Losartan Potassium 50 mg PO 03/23/20
[2020-03-23 23:07] VITALS: O2SAT 94
[2020-03-23] MEDS ORDERED: INSULIN, REG.(HUMAN) 100 U/ML VIAL IV ONE (23:15)
[2020-03-23] MEDS ORDERED: SODIUM CHLORIDE 0.9% 1000ML 1,000 ML IVS ONE (23:15)
[2020-03-24] VITALS: BP 139/60
== END 2020-03-23 23:59 | disposition home or self-care (01) ==
LOC: ER 21:49
DX: E11.65 Type 2 diabetes mellitus with hyperglycemia (principal); I25.2 Old myocardial infarction; I10 Essential (primary) hypertension; I25.10 Atherosclerotic heart disease of native coronary artery without angina pectoris; F17.200 Nicotine dependence, unspecified, uncomplicated; Z79.899 Other long term (current) drug therapy; Z79.02 Long term (current) use of antithrombotics/antiplatelets; Z95.5 Presence of coronary angioplasty implant and graft
CPT/HCPCS: 36415; 80048; 82948; 85025; J7030

== ENCOUNTER → 2020-04-12 | Outpatient (CLI) | payer MEDICARE | LOC: LAB.O 11:06 | PROVIDERS: ATTEND Obstetrics & Gynecology | DX: E11.9 Type 2 diabetes mellitus without complications (principal) ==

== ENCOUNTER 2020-05-08 18:41 | Emergency (ER) | payer MEDICARE ==
[2020-05-08] MEDS ORDERED: MORPHINE SULFATE INJ 10 MG/ML VIAL IV ONE ×2 (18:45→20:42)
[2020-05-08] MEDS ORDERED: ONDANSETRON INJ 4 MG/2 ML VIAL IV ONE (18:46)
--- NOTE | 2020-05-08 18:50 | ED.PDOC ---
History of Present Illness - General Stated Complaint: shoulder pain Time Seen by Provider: 05/08/20 18:45 Source: patient Exam Limitations: no limitations - History of Present Illness Initial Comments: 69 y/o female tripped over purse strap and fell injuring her L shoulder. She denies any other injury. Has chronic back pain. Occurred: just prior to arrival Pain - Upper Extremity: severe: Shoulder, left - no obvious deformity, Upper arm, left Method of Injury: fell Improving Factors: immobilization Worsening Factors: movement Allergies/Adverse Reactions: Allergies NO KNOWN ALLERGY Allergy (Verified 06/04/18 14:26) Home Medications: Ambulatory Orders Oxybutynin Chloride 5 mg PO DAILY 06/18/17 metFORMIN XR [Glucophage Xr] 500 mg PO TID 06/18/17 Clopidogrel Bisulfate [Plavix] 75 mg PO DAILY 06/20/17 Digoxin [Lanoxin Tab] 0.125 mg PO DAILY@1200 06/20/17 Atenolol 100 mg PO DAILY 01/13/18 Potassium Chloride [K-Tab] 10 meq PO DAILY 01/13/18 Triamterene & Hydrochlorothiaz [Triamterene/Hydrochloroth 75-50 mg] 1 tab PO DAILY 01/13/18 Ranitidine HCl [Ranitidine Hydrochloride] 150 mg PO DAILY 12/20/18 Rosuvastatin Calcium 10 mg PO DAILY 12/20/18 SITagliptin [Januvia] 50 mg PO DAILY 12/20/18 Ondansetron [Ondansetron Odt] 4 mg PO Q8HR PRN #5 tab 02/05/19 Glyburide 2.5 mg PO DAILY 03/23/20 Losartan Potassium 50 mg PO DAILY 03/23/20 Review of Systems - Review of Systems Constitutional: States: no symptoms reported EENTM: States: no symptoms reported Respiratory: States: no symptoms reported Cardiology: States: no symptoms reported Gastrointestinal/Abdominal: States: no symptoms reported Musculoskeletal: States: other - L upper arm and shoulder Skin: States: no symptoms reported Neurological: States: no symptoms reported Hematologic/Lymphatic: States: no symptoms reported Past Medical History (General) - Patient Medical History Hx Seizures: No Hx Stroke: No Hx Dementia: No Hx Asthma: No Hx of COPD: No Hx Cardiac Disorders: Yes - [place] X 1, Stint X 1 Hx Congestive Heart Failure: No Hx Pacemaker: No Hx Hypertension: Yes Hx Thyroid Disease: No Hx Diabetes: Yes Hx Gastroesophageal Reflux: No Hx Renal Disease: No Hx Cancer: No Hx of HIV: No Hx Hepatitis C: No Hx MRSA: No - Vaccination History Hx Tetanus, Diphtheria Vaccination: No Hx Influenza Vaccination: No Hx Pneumococcal Vaccination: No - Social History Hx Tobacco Use: Yes Hx Chewing Tobacco Use: No Hx Alcohol Use: No Hx Substance Use: No Hx Substance Use Treatment: No Hx Depression: No Hx Physical Abuse: No Hx Emotional Abuse: No Hx Suspected Abuse: No - Female History Patient : No Family Medical History - Family History Mother Family History: No Known Living Status: Hx Family Hypertension: Yes Physical Exam - Physical Exam General Appearance: Anxious, Obvious distress Eyes, Ears, Nose, Throat Exam: PERRL/EOMI, normal ENT inspection Neck: non-tender, full range of motion, supple, normal inspection Cardiovascular/Respiratory: regular rate, rhythm, no M/R/G, normal peripheral pulses, normal breath sounds, no respiratory distress Abdominal Exam: non-tender, no organomegaly Shoulder Exam: bone tenderness, limited ROM, pain Elbow/Forearm Exam: normal inspection Wrist Exam: normal inspection Hand Exam: normal inspection Mental Status: alert, oriented x 3 Skin Exam: normal color Progress - EKG/XRAY/CT Comments: splint Departure - Departure Clinical Impression: Fracture of humerus Condition: Good Referrals: Ortiz Begum MD [Primary Care Provider] - 1-2 Weeks Home Medications: Ambulatory Orders Oxybutynin Chloride 5 mg PO DAILY 06/18/17 metFORMIN XR [Glucophage Xr] 500 mg PO TID 06/18/17 Clopidogrel Bisulfate [Plavix] 75 mg PO DAILY 06/20/17 Digoxin [Lanoxin Tab] 0.125 mg PO DAILY@1200 06/20/17 Atenolol 100 mg PO DAILY 01/13/18 Potassium Chloride [K-Tab] 10 meq PO DAILY 01/13/18 Triamterene & Hydrochlorothiaz [Triamterene/Hydrochloroth 75-50 mg] 1 tab PO DAILY 01/13/18 Ranitidine HCl [Ranitidine Hydrochloride] 150 mg PO DAILY 12/20/18 Rosuvastatin Calcium 10 mg PO DAILY 12/20/18 SITagliptin [Januvia] 50 mg PO DAILY 12/20/18 Ondansetron [Ondansetron Odt] 4 mg PO Q8HR PRN #5 tab 02/05/19 Glyburide 2.5 mg PO DAILY 03/23/20 Losartan Potassium 50 mg PO DAILY 03/23/20
[2020-05-08 19:03] VITALS: O2SAT 96
--- NOTE | 2020-05-08 19:16 | RAD ---
EXAM DESCRIPTION: XR Humerus, Left CLINICAL HISTORY: 69 years Female injury TECHNIQUE: Two views of the left humerus are provided. COMPARISON: No prior exams provided for comparison. FINDINGS: Examination somewhat limited by patient positioning. There are acute fractures through the greater and lesser tuberosities of the left humerus. Suspected humeral neck fracture. No findings to suggest dislocation. The remainder of the left humerus appears normal. IMPRESSION: There are acute fractures of the left proximal humerus with a suspected humeral neck fracture. Recommend dedicated radiographs of the left shoulder. Electronically signed by: Casandra Lal MD 05/08/2020 7:15 PM CDT
--- NOTE | 2020-05-08 20:03 | RAD ---
EXAM DESCRIPTION: Shoulder, left 2 or More Views; 2 views CLINICAL HISTORY: 69 years Female, fracture COMPARISON: Left humerus radiograph May 08, 2020 at 7:00 PM. FINDINGS/IMPRESSION: 1. Nondisplaced humeral head fracture laterally extending inferiorly with its junction with the humeral neck. 2. Humeral head projecting in the bony glenoid. Electronically signed by: Royal Gardner MD 05/08/2020 8:01 PM CDT
[2020-05-08 20:54] VITALS: BP 140/63
[2020-05-08] MEDS ORDERED: HYDROmorphone HCL INJ 2 MG/ML VIAL IM ONE (21:22)
[2020-05-09 00:08] VITALS: TEMP 98.2
== END 2020-05-08 21:39 | disposition home or self-care (01) ==
LOC: ER 18:41
DX: S42.202A Unspecified fracture of upper end of left humerus, initial encounter for closed fracture (principal); I10 Essential (primary) hypertension; I25.2 Old myocardial infarction; Z79.02 Long term (current) use of antithrombotics/antiplatelets; Z79.899 Other long term (current) drug therapy; W01.0XXA Fall on same level from slipping, tripping and stumbling without subsequent striking against object, initial encounter; Y92.9 Unspecified place or not applicable
CPT/HCPCS: 73030; 73060; J1170; J2270; J2405

== ENCOUNTER 2020-05-12 17:23 | Emergency (ER) | payer MEDICARE ==
--- NOTE | 2020-05-12 18:31 | ED.PDOC ---
History of Present Illness - General Chief Complaint: General Stated Complaint: Hand swelling and arm pain from previous break Time Seen by Provider: 05/12/20 18:22 Source: patient, RN notes reviewed, Vital Signs reviewed, family - Daughter Exam Limitations: no limitations - History of Present Illness Initial Comments: Patient is a 69-year-old white female who fell and sustained a left humerus fracture last week. Patient was seen here and placed in a coarctation splint and discharged home. Patient complains of pain at the top of the splint at the shoulder where it is rubbing. Additionally she complains of swelling and pain in her hands. The pain is throbbing in nature. It is [id number]. Is nonradiating. Is worse with movement. Better with nothing. Moderate in intensity. Timing/Duration: 1 week Severity: moderate Improving Factors: nothing Worsening Factors: movement Associated Symptoms: denies symptoms Allergies/Adverse Reactions: Allergies NO KNOWN ALLERGY Allergy (Verified 05/12/20 17:44) Home Medications: Ambulatory Orders Oxybutynin Chloride 5 mg PO DAILY 06/18/17 metFORMIN XR [Glucophage Xr] 500 mg PO TID 06/18/17 Clopidogrel Bisulfate [Plavix] 75 mg PO DAILY 06/20/17 Digoxin [Lanoxin Tab] 0.125 mg PO DAILY@1200 06/20/17 Atenolol 100 mg PO DAILY 01/13/18 Potassium Chloride [K-Tab] 10 meq PO DAILY 01/13/18 Triamterene & Hydrochlorothiaz [Triamterene/Hydrochloroth 75-50 mg] 1 tab PO DAILY 01/13/18 Ranitidine HCl [Ranitidine Hydrochloride] 150 mg PO DAILY 12/20/18 Rosuvastatin Calcium 10 mg PO DAILY 12/20/18 SITagliptin [Januvia] 50 mg PO DAILY 12/20/18 Ondansetron [Ondansetron Odt] 4 mg PO Q8HR PRN #5 tab 02/05/19 Glyburide 2.5 mg PO DAILY 03/23/20 Losartan Potassium 50 mg PO DAILY 03/23/20 Review of Systems - Review of Systems Constitutional: States: no symptoms reported, see HPI. Denies: chills, fever, malaise, weakness EENTM: States: no symptoms reported. Denies: eye pain, blurred vision, double vision Respiratory: States: no symptoms reported. Denies: cough, short of breath, stridor, wheezing Cardiology: States: no symptoms reported. Denies: chest pain, palpitations, syncope Gastrointestinal/Abdominal: States: no symptoms reported. Denies: abdominal pain, constipation, diarrhea, nausea Musculoskeletal: States: see HPI, joint pain, other - Patient with complaints of shoulder stiffness, upper arm pain with movement and hand and wrist swelling. Skin: States: see HPI, other - Swelling of her left hand. Neurological: States: no symptoms reported. Denies: tingling, tremors, weakness Endocrine: States: no symptoms reported Hematologic/Lymphatic: States: no symptoms reported All other Systems: Reviewed and Negative, No Change from Baseline Past Medical History (General) - Patient Medical History Hx Seizures: No Hx Stroke: No Hx Dementia: No Hx Asthma: No Hx of COPD: No Hx Cardiac Disorders: Yes - [place] X 1, Stint X 1 Hx Congestive Heart Failure: No Hx Pacemaker: No Hx Hypertension: Yes Hx Thyroid Disease: No Hx Diabetes: Yes Hx Gastroesophageal Reflux: No Hx Renal Disease: No Hx Cancer: No Hx of HIV: No Hx Hepatitis C: No Hx MRSA: No Surgical History: colectomy, tonsillectomy, other - Vaccination History Hx Tetanus, Diphtheria Vaccination: No Hx Influenza Vaccination: No Hx Pneumococcal Vaccination: No - Social History Hx Tobacco Use: Yes Hx Chewing Tobacco Use: No Hx Alcohol Use: No Hx Substance Use: No Hx Substance Use Treatment: No Hx Depression: No Hx Physical Abuse: No Hx Emotional Abuse: No Hx Suspected Abuse: No - Female History Patient : No Family Medical History - Family History Mother Family History: No Known Living Status: Hx Family Hypertension: Yes Physical Exam - Physical Exam General Appearance: Alert, Anxious, Obvious distress, Well Developed, Well Groomed, Well Hydrated, Well Nourished Eye Exam: bilateral normal Ears, Nose, Throat: hearing grossly normal, normal ENT inspection, normal pharynx Neck: non-tender, full range of motion, supple, normal inspection Respiratory: chest non-tender, lungs clear, normal breath sounds, no respiratory distress, no accessory muscle use Cardiovascular/Chest: normal peripheral pulses, regular rate, rhythm, no edema, no gallop, no JVD, no murmur Peripheral Pulses: radial,right: 2+, radial,left: 2+ Gastrointestinal/Abdominal: normal bowel sounds, non tender, soft Back Exam: normal inspection, no CVA tenderness, no vertebral tenderness Extremity: swelling - Patient with swelling of her right hand and wrist. After the splint was taken down the hand and wrist were examined and there were no lacerations or abrasions to the hand or wrist. There is no tenderness to palpation of the bones of the hand of the wrist. There is moderate swelling. She does have pain with palpation at the proximal humerus. Patient is neurova scularly intact. Cap refill is less than 2 seconds. 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 Patient splint was replaced with a long-arm splint as well as a sling. Patient is feeling much better and having less pain. Plan on discharge home with follow-up with Dr. tello in a few days. Of discussed this plan of care with the patient and her daughter and they voiced understanding and agreement. Shahid Tobin M.D. #[id number] - Results/Orders Results/Orders: Vital Signs 05/12/20 05/12/20 17:45 17:56 Temperature 98.7 F Pulse Rate [ 60 Right Radial] Respiratory 20 20 Rate Blood Pressure 148/67 [Right Arm] O2 Sat by Pulse 91 L Oximetry - EKG/XRAY/CT CT Ordered: No Departure - Departure Clinical Impression: Pruritus, Skin irritation Humerus fracture Qualifiers: Encounter type: subsequent encounter Humerus Location: surgical neck Fracture type: closed Fracture morphology: 2-part Fracture alignment: nondisplaced Laterality: left Fracture healing: with routine healing Qualified Code(s): S42.225D - 2-part nondisplaced fracture of surgical neck of left humerus, subsequent encounter for fracture with routine healing Disposition: Discharge to Home or Self Care Condition: Good Departure Forms: ED Discharge - Pt. Copy, Patient Portal Self Enrollment Instructions: Shoulder Fracture (DC), Splint Care Diet: resume usual diet Activity: increase activity as tolerated, no pushing/pulling with affected limb Referrals: Ortiz Begum MD [Primary Care Provider] - 1-2 Weeks Harvinder Tello MD [Active Staff] - 1-5 Days Home Medications: Ambulatory Orders Oxybutynin Chloride 5 mg PO DAILY 06/18/17 metFORMIN XR [Glucophage Xr] 500 mg PO TID 06/18/17 Clopidogrel Bisulfate [Plavix] 75 mg PO DAILY 06/20/17 Digoxin [Lanoxin Tab] 0.125 mg PO DAILY@1200 06/20/17 Atenolol 100 mg PO DAILY 01/13/18 Potassium Chloride [K-Tab] 10 meq PO DAILY 01/13/18 Triamterene & Hydrochlorothiaz [Triamterene/Hydrochloroth 75-50 mg] 1 tab PO DAILY 01/13/18 Ranitidine HCl [Ranitidine Hydrochloride] 150 mg PO DAILY 12/20/18 Rosuvastatin Calcium 10 mg PO DAILY 12/20/18 SITagliptin [Januvia] 50 mg PO DAILY 12/20/18 Ondansetron [Ondansetron Odt] 4 mg PO Q8HR PRN #5 tab 02/05/19 Glyburide 2.5 mg PO DAILY 03/23/20 Losartan Potassium 50 mg PO DAILY 03/23/20
[2020-05-12 18:54] VITALS: BP 118/50; TEMP 98.1; O2SAT 92
== END 2020-05-12 18:54 | disposition home or self-care (01) ==
LOC: ER 17:23
DX: S42.225A 2-part nondisplaced fracture of surgical neck of left humerus, initial encounter for closed fracture (principal); L29.9 Pruritus, unspecified; I10 Essential (primary) hypertension; I25.2 Old myocardial infarction; E11.9 Type 2 diabetes mellitus without complications; Z79.02 Long term (current) use of antithrombotics/antiplatelets; Z95.5 Presence of coronary angioplasty implant and graft; Z87.891 Personal history of nicotine dependence; W19.XXXA Unspecified fall, initial encounter

== ENCOUNTER → 2020-05-18 | Outpatient (CLI) | payer MEDICARE ==
--- NOTE | 2020-05-18 09:07 | RAD ---
EXAM DESCRIPTION: Shoulder,Left 2 or More Views CLINICAL HISTORY: PAIN COMPARISON: Previous left shoulder x-ray April 08, 2020 TECHNIQUE: Two x-ray views of the left shoulder. FINDINGS: Fractured left humeral head is seen. Humeral head is normally aligned with the glenoid on the two submitted views including a transaxillary Y-view and a frontal view. Degenerative narrowing of the AC joint. The abnormal shape of the humeral head is unchanged compared to the previous study. No increasing displacement of fragments or change of angulation. No periosteal new bone formation or callus formation is seen. IMPRESSION: Stable appearance of fractured proximal left humerus. Electronically signed by: Andrey You MD 05/18/2020 9:05 AM CDT
--- NOTE | 2020-05-18 14:27 | CT ---
Study: CT of the Left shoulder. Indication: CLOSED FRACTURE OF PROXIMAL LEFT HUMERUS Technique: Axial CT of the left shoulder was performed without contrast. Coronal and sagittal reformats performed. This exam was performed according to our departmental dose-optimization program, which includes automated exposure control, adjustment of the mA and/or kV according to patient size and/or use of iterative reconstruction technique. Comparison: Radiographs May 08, 2020. Findings: Moderate AC joint osteoarthritis. Type I acromion. Examination not optimized to evaluate the rotator cuff tendons, however there are several millimetric ossifications within the anterior and mid supraspinatus tendon insertion. A comminuted impacted fracture involving the anatomic and surgical neck humerus as well as the greater tuberosity. There is undulation and areas of cortical step-off throughout the horizontal footprint but without significant displacement. The humeral neck is impacted by up to 11 mm and is anteriorly displaced by up to 3 mm. Fracture extension into the base of the lesser tuberosity noted as well. Minimal involvement of the anteromedial articular surface of the humeral head. No features of dislocation event. The fracture is ununited with no significant callus formation or periostitis. Impression: Acute proximal left humeral fracture with involvement of the anatomic and surgical necks, greater tuberosity, and lesser tuberosity. Moderate AC joint osteoarthritis. Electronically signed by: Darrick Rodrigues MD 05/18/2020 2:25 PM CDT
== END ==
LOC: RAD 08:25
PROVIDERS: ATTEND Orthopaedic Surgery
DX: S42.202A Unspecified fracture of upper end of left humerus, initial encounter for closed fracture (principal); M19.012 Primary osteoarthritis, left shoulder

== ENCOUNTER → 2020-06-04 | Outpatient (CLI) | payer MEDICARE ==
--- NOTE | 2020-06-04 16:36 | RAD ---
EXAM DESCRIPTION: Humerus,Left CLINICAL HISTORY: CLOSED FRACTURE OF PROXIMAL LEFT HUMERUS COMPARISON: CT of the shoulder dated 18 May 2021 TECHNIQUE: AP and lateral left FINDINGS: A comminuted fracture of the region of the surgical neck and greater tuberosity is again observed. Minimal callus formation is observed at the fracture site. No new injury is seen. IMPRESSION: Comminuted fracture the proximal humerus with early evidence of healing. Electronically signed by: Emerson Lai MD 06/04/2020 4:34 PM CDT
== END ==
LOC: RAD 10:29
PROVIDERS: ATTEND Orthopaedic Surgery
DX: S42.202D Unspecified fracture of upper end of left humerus, subsequent encounter for fracture with routine healing (principal)

== ENCOUNTER → 2020-08-27 | Outpatient (CLI) | payer MEDICARE ==
--- NOTE | 2020-08-27 11:43 | RAD ---
EXAM: Shoulder,Left 2 or More Views INDICATION: 70 years Female, FRACTURE COMPARISON: 2 views of the left shoulder 06/28/2020 FINDINGS: 3 views of the left shoulder were performed. Continued interval healing of previously identified comminuted and foreshortened proximal left humerus fracture. There has been some progressive sclerosis along the fracture lines. No new acute fracture is identified. There has been interval widening of the acromiohumeral interval without apparent glenohumeral joint dislocation. IMPRESSION: 1. Continued interval healing of a proximal left humerus fracture. 2. Interval widening of the acromiohumeral interval without apparent glenohumeral joint dislocation. This most likely reflects rotator cuff injury/tear. Electronically signed by: Nelly Parada MD 08/27/2020 11:42 AM CDT
== END ==
LOC: RAD 09:55
PROVIDERS: ATTEND Orthopaedic Surgery
DX: S42.202D Unspecified fracture of upper end of left humerus, subsequent encounter for fracture with routine healing (principal); M25.812 Other specified joint disorders, left shoulder

== ENCOUNTER → 2020-09-17 | Outpatient (CLI) | payer MEDICARE | LOC: LAB.O 08:57 | PROVIDERS: ATTEND Obstetrics & Gynecology | DX: Z00.00 Encounter for general adult medical examination without abnormal findings (principal) ==